=== PATIENT | female | born 1970 | race Caucasian/White ===

== ENCOUNTER 2020-09-08 01:55 | Outpatient (CLI) | payer BC, SELFPAY ==
[2020-09-08 20:00] LABS: SARS-CoV-2 RNA PCR Negative
== END 2020-09-08 01:56 | disposition home or self-care (01) ==
LOC: ANHCOVIDDT 01:55
PROVIDERS: PCP Internal Medicine; Visit Provider Obstetrics & Gynecology
DX: Z01.818 Encounter for other preprocedural examination (principal); Z20.828 Contact with and (suspected) exposure to other viral communicable diseases
CPT/HCPCS: 87635; C9803; U0003

== ENCOUNTER 2020-09-08 09:12 | Outpatient (CLI) | payer BC, SELFPAY ==
--- NOTE | 2020-09-08 09:15 | ECG_ITS ---
Measurements Intervals [place] Rate: 80 P: 54 NM: 135 QRS: 44 QRSD: 96 T: 14 QT: 366 QTc: 422 Interpretive Statements SINUS RHYTHM MINIMAL Q WAVES- HIGH LATERAL LEADS BORDERLINE ECG Electronically Signed On 09-08-2020 9:31:56 GUARD SUPERVISOR by Javed Herrera D.O.
[2020-09-08 10:23] LABS: Anion Gap 4 mmol/L (8-16); Blood Urea Nitrogen 10 mg/dL (7-17); Calcium 8.6 mg/dL (8.4-10.2); Carbon Dioxide 31 mmol/L (22-30); Chloride 103 mmol/L (98-107); Estimated Glomerular Filt Rate > 60; Glucose 89 mg/dL (65-105); Potassium 4.3 mmol/L (3.4-5.0); Sodium 138 mmol/L (137-145)
== END 2020-09-08 09:13 | disposition home or self-care (01) ==
LOC: ANHSURGERY 09:15
PROVIDERS: Anesthesiology; PCP Internal Medicine; Visit Provider Obstetrics & Gynecology
DX: Z01.818 Encounter for other preprocedural examination (principal); I10 Essential (primary) hypertension; R94.31 Abnormal electrocardiogram [ECG] [EKG]
CPT/HCPCS: 36415; 80048; 93005

== ENCOUNTER 2020-09-11 01:41 | Day surgery (SDC) | payer BC, SELFPAY ==
[2020-09-06 11:01] VITALS: BMI 38.5
--- NOTE | 2020-09-08 14:22 | WPDANESEPPF ---
Anes - Initial Pre Proc Eval Procedure: Operation Date: 09/11/20 12:00 Proposed Procedures p Hysteroscopy, Dilation and Curettage, Possible Myosure, Cervical Biopsy - Nixon Weinberg MD Date/Time: 09/08/20 14:22 Surgeon: Nixon Weinberg MD Pre Op Diagnosis: abnormal uterine bleeding Patient Data Age: 49 Gender: F Height: 1.63 m Weight: 101.8 kg Allergies Allergy/AdvReac Type Severity Reaction Status Date / Time No Known Allergies Allergy Unknown Verified 09/11/20 10:05 Home Medications Medication Instructions Recorded Confirmed Type calcium carbonate 500 mg calcium 500 mg PO BID 09/10/19 09/11/20 History (1,250 mg) tablet cetirizine 10 mg tablet 10 mg PO DAILY 09/10/19 09/11/20 History icosapent ethyl 1 gram capsule 2 gm PO BID 09/10/19 09/11/20 History infliximab 100 mg intravenous See Rx Instructions .ROUTE .COMPLEX 09/10/19 09/11/20 History solution magnesium 200 mg tablet 200 mg PO DAILY 09/10/19 09/11/20 History menthol 0.44 %-zinc oxide 20.6 % 1 applic TOPICAL 4-6XD PRN 09/10/19 09/06/20 History topical ointment mesalamine 1.2 gram tablet,delayed 1.2 gm PO DAILY 09/10/19 09/11/20 History release mometasone 0.1 % topical cream 1 applic TOPICAL PRN PRN 09/10/19 09/06/20 History vit with calcium-iron 1 tablet PO QAM 09/10/19 09/11/20 History fum-folic acid 27 mg-1 mg tablet losartan 50 mg-hydrochlorothiazide 0.5 tablet PO DAILY 01/20/20 09/11/20 History 12.5 mg tablet mecobalamin (vitamin B12) 5,000 5,000 mcg PO QAM 01/20/20 09/11/20 History mcg disintegrating tablet potassium 99 mg tablet 550 mg PO QAM 01/20/20 09/11/20 History fluticasone propionate 50 2 spray NASAL DAILY #3 each 03/06/20 09/11/20 Rx mcg/actuation nasal spray,suspension atorvastatin 80 mg tablet 80 mg PO DAILY #90 tablet 05/11/20 09/11/20 Rx cholecalciferol (vitamin D3) 25 mcg PO DAILY 09/06/20 09/11/20 History valacyclovir 1,000 mg PO QAM 09/06/20 09/11/20 History progesterone micronized 200 mg PO HS 09/11/20 09/11/20 History [Prometrium] Patient hx anesthesia problems: none Family hx anesthesia problems: none PMFSH Past Medical History Medical History Abnormal Pap smear of cervix Anxiety Benign essential hypertension BMI 37.0-37.9, adult BMI 38.0-38.9,adult Crohn's disease Encounter for routine adult health examination without abnormal findings Fatty liver Follow up Hyperlipidemia IBS (irritable bowel syndrome) Nicotine abuse On intermediate frame tender drug therapy COURTNEY on CPAP Personal history of nicotine dependence Screening for diabetes mellitus Shingles Vitamin D deficiency Family History Family History Mother Diabetes mellitus Hypertension Other Family history of malignant neoplasm of breast Family history of malignant neoplasm of cervix Family history of malignant neoplasm of ovary Social History Social History Years smoked: 30 Smoking status: Current every day smoker Tobacco type: cigarettes Second hand tobacco smoke exposure: No Alcohol intake: current Drinks per week: 3 Living arrangements: with family Spiritual care concerns: No Anes - Eval Final PreProcedure Day of Procedure 09/08/20 14:22 Patient weight: obese Heart: regular rate and rhythm Lungs: clear to auscultation and normal air movement Airway: Mallampati scale class III Neurological: alert and oriented Last oral intake: >/= 8 hours ASA classification: III Emergent: no Anesthetic plan: proceed Anesthesia type and monitoring: general GIVS and standard monitoring Informed Consent: The patient's anesthetic plan and its attendant risks and benefits were discussed with the patient/family/POA. Questions were solicited and answers provided to the satisfaction of the patient/family/POA.
[2020-09-11 10:15] VITALS: BP 122/75; PULSE 75; RESP 16; TEMP 36.4; O2SAT 100
--- NOTE | 2020-09-11 10:19 | PM.IMHP ---
H&P: HPI History of Present Illness Date/Time: 09/11/20 10:19 Chief Complaint: Heavy bleeding and abnormal pap. Narrative: Anabel Beltran is a 49 year old perimenopausal female with acute menorrhagia starting over a month ago. Prior to this she had anovulatory cycles. She also had an LGSIL pap and was scheduled for colposcopy but unable to do due to bleeding and pain. She was subsequently treated for endometritis which improved the bleeding for a few days and then continued to have heavy bleeding. Attempted endometrial biopsy in office but she could not tolerate it. Due to the persistent menometrorrhagia not relieved with antibiotics. She does not tolerate NSAIDs due to GI history. She was recommended for D and C and hysteroscopy and will do the colposcopy at the same time. Review of Systems Review of Systems: All systems reviewed & are unremarkable except as noted in HPI and below Cardiovascular: Cardiovascular: Reports no additional cardiovascular complaints, Denies chest pain and Denies dyspnea Respiratory: Respiratory: Reports no additional respiratory complaints and Denies dyspnea Gastrointestinal: Gastrointestinal: Reports abdominal pain, Denies change in bowel habits, Denies diarrhea, Denies nausea and Denies vomiting Genitourinary: Genitourinary: Reports pelvic pain Integumentary/Breasts: Skin/Breast: Reports system reviewed and no additional complaints, except as docu Neurologic: Reports system reviewed and no additional complaints, except as documented PMFSH Past Medical History Medical History Abnormal Pap smear of cervix Anxiety Benign essential hypertension BMI 37.0-37.9, adult BMI 38.0-38.9,adult Crohn's disease Encounter for routine adult health examination without abnormal findings Fatty liver Follow up Hyperlipidemia IBS (irritable bowel syndrome) Nicotine abuse On residential drug therapy COURTNEY on CPAP Personal history of nicotine dependence Screening for diabetes mellitus Shingles Vitamin D deficiency Family History Family History Mother Diabetes mellitus Hypertension Other Family history of malignant neoplasm of breast Family history of malignant neoplasm of cervix Family history of malignant neoplasm of ovary Social History Social History Years smoked: 30 Smoking status: Current every day smoker Tobacco type: cigarettes Second hand tobacco smoke exposure: No Alcohol intake: current Drinks per week: 3 Living arrangements: with family Spiritual care concerns: No Meds Home Medications and Allergies Home Medications Medication Instructions Recorded Confirmed Type calcium carbonate 500 mg calcium 500 mg PO BID 09/10/19 09/11/20 History (1,250 mg) tablet cetirizine 10 mg tablet 10 mg PO DAILY 09/10/19 09/11/20 History icosapent ethyl 1 gram capsule 2 gm PO BID 09/10/19 09/11/20 History infliximab 100 mg intravenous See Rx Instructions .ROUTE .COMPLEX 09/10/19 09/11/20 History solution magnesium 200 mg tablet 200 mg PO DAILY 09/10/19 09/11/20 History menthol 0.44 %-zinc oxide 20.6 % 1 applic TOPICAL 4-6XD PRN 09/10/19 09/06/20 History topical ointment mesalamine 1.2 gram tablet,delayed 1.2 gm PO DAILY 09/10/19 09/11/20 History release mometasone 0.1 % topical cream 1 applic TOPICAL PRN PRN 09/10/19 09/06/20 History vit with calcium-iron 1 tablet PO QAM 09/10/19 09/11/20 History fum-folic acid 27 mg-1 mg tablet losartan 50 mg-hydrochlorothiazide 0.5 tablet PO DAILY 01/20/20 09/11/20 History 12.5 mg tablet mecobalamin (vitamin B12) 5,000 5,000 mcg PO QAM 01/20/20 09/11/20 History mcg disintegrating tablet potassium 99 mg tablet 550 mg PO QAM 01/20/20 09/11/20 History fluticasone propionate 50 2 spray NASAL DAILY #3 each 03/06/20 09/11/20 Rx mcg/actuation nasal spray,susp
[2020-09-11] MEDS: LACTATED RINGERS 1,000 ML 30 ML IV CONT (10:31)
--- NOTE | 2020-09-11 11:46 | WPDHPUPDATE1 ---
History and Physical Update Update Date/Time: 09/11/20 11:46 History and Physical has been reviewed, including an updated exam of the patient. There are NO changes in the patient's condition. Risks, benefits, and alternatives have been discussed and questions answered. Patient agrees to proceed with procedure.
[2020-09-11] MEDS: ceFAZolin 2 GM/D5W 50 ML 2 GM/50 ML BAG IVPB (11:56)
[2020-09-11 12:37] VITALS: BP 105/69; PULSE 81; RESP 16
--- NOTE | 2020-09-11 12:39 | PM.PROC ---
Procedure Note - Detailed Date of procedure: 09/11/20 Pre-op diagnosis: abnormal uterine bleeding 1. Abnormal uterine bleeding 2. LGSIL Post-op diagnosis: same Procedure performed: 1. Diagnostic hysteroscopy and dilation and currettage 2. Colposcopy with cervical biopsies and endocervical currettage. Description of procedure: After informed consent was obtained patientWas taken to the operating room and adequate IV sedation was administered. She was placed in high lithotomy position and prepped and draped in sterile fashion. Attention was turned to the vagina. Speculum was inserted. Single-tooth tenaculum placed on the anterior lip of the cervix. 10 cc of 1% lidocaine plain was injected at the cervical vaginal interface that 2,5,8 and 10:00 a.m.. Lugol solution was placed on the cervix. The colposcopy was performed. There was noted to be hypopigmentation at 6,12, and 2 o clock position of cervix. Lesions visualized completely. Transformation zone seen completely. These areas were biopsied. The cervix was then dilated to an 8 Rice dilator. Initially there is some scarring at the lower uterine segment. Os finder was used. The uterus was initially sounded to 4 cm. The hysteroscope was inserted and the uterine cavity was visualized. The uterine cavity was overall normal it was noted to have slightly more lining on the posterior cavity. No lesions were seen. The hysteroscope was removed and resounded to 6 cm. A curettage was performed and a moderate amount of tissue was obtained. Cell solution was placed at the cervical biopsy sites and hemostasis was noted. The speculum was removed the patient tolerated procedure well total insufflation filled with 100 cc total recovered with 750 cc. Sponge count was correct patient tolerated procedure and was taken to recovery in stable condition. Surgeon: Nixon Weinberg MD
[2020-09-11] MEDS: fentaNYL CITRATE INJ (*CRX) 100 MCG/2 ML VIAL 25 MCG IV PUSH (12:49)
[2020-09-11 13:05] VITALS: BP 117/80; PULSE 69; RESP 16
[2020-09-11 13:35] VITALS: BP 143/82; PULSE 83; RESP 16
== END 2020-09-11 13:55 | disposition home or self-care (01) ==
PROVIDERS: PCP Internal Medicine; Visit Provider Obstetrics & Gynecology
PROC: 0U5B8ZZ Destruction of Endometrium, Via Natural or Artificial Opening Endoscopic (ICD-10-PCS; CPT 58563; principal; 2020-09-11 12:00)
DX: N92.1 Excessive and frequent menstruation with irregular cycle (principal); R87.612 Low grade squamous intraepithelial lesion on cytologic smear of cervix (LGSIL); N72 Inflammatory disease of cervix uteri; I10 Essential (primary) hypertension; G47.33 Obstructive sleep apnea (adult) (pediatric); K50.90 Crohn's disease, unspecified, without complications; K76.0 Fatty (change of) liver, not elsewhere classified; F41.8 Other specified anxiety disorders; E78.5 Hyperlipidemia, unspecified; E55.9 Vitamin D deficiency, unspecified; F17.210 Nicotine dependence, cigarettes, uncomplicated; E66.9 Obesity, unspecified; Z68.39 Body mass index [BMI] 39.0-39.9, adult
CPT/HCPCS: 58558; 57454; 88305; A9270; J0690; J2250; J2704; J3010; J7030; J7120

== ENCOUNTER 2021-12-20 16:46 | Outpatient (CLI) | payer BC, SELFPAY ==
--- NOTE | ~2021-12-20 | XR_ITS ---
XR chest 2V DATE: 12/20/2021 17:31 INDICATION: Nonspecific reaction to tuberculin skin test TECHNIQUE: PA and lateral views COMPARISON: 12/23/2004 portable AP chest FINDINGS: Normal heart size. No hilar or mediastinal enlargement. No pulmonary infiltrate or consolid ation, pleural effusion or pulmonary vascular congestion or pneumothorax. Included skeletal structure s are unremarkable. IMPRESSION: No active cardiopulmonary disease Reviewed, dictated and finalized at location A.
== END 2021-12-20 16:47 | disposition home or self-care (01) ==
PROVIDERS: PCP Internal Medicine; Visit Provider Internal Medicine
DX: R76.11 Nonspecific reaction to tuberculin skin test without active tuberculosis (principal)
CPT/HCPCS: 71046

== ENCOUNTER 2022-10-31 15:07 | Outpatient (CLI) | payer BC, SELFPAY ==
--- NOTE | ~2022-10-31 | MM_ITS ---
EXAMINATION: MM screening harsha BI w cleopatra HISTORY: Screening mammogram TECHNIQUE: Craniocaudal and mediolateral oblique 3-D tomosynthesis images were obtained and synthetic 2-D images were generated. CAD analysis was submitted and interpreted. COMPARISON: 10/07/2019 bilateral screening mammogram BREAST PARENCHYMAL COMPOSITION: There are scattered areas of fibroglandular density. FINDINGS: There is no evidence of suspicious mass, calcification, or architectural distortion to sugg est malignancy in either breast. There has been no suspicious interval change. IMPRESSION: 1. No mammographic evidence of malignancy. 2. Recommend routine screening mammography in one year. BI-RADS Category 1: Negative Reviewed, dictated and finalized at location A. DLE REPAIRER
== END 2022-10-31 15:08 | disposition home or self-care (01) ==
LOC: ANHIMG 15:12
PROVIDERS: PCP Internal Medicine; Visit Provider Obstetrics & Gynecology
DX: Z12.31 Encounter for screening mammogram for malignant neoplasm of breast (principal)
CPT/HCPCS: 77063; 77067

== ENCOUNTER 2023-12-12 07:44 | Outpatient (CLI) | payer BC, SELFPAY ==
--- NOTE | ~2023-12-12 | MM_ITS ---
EXAMINATION: MM screening harsha BI w cleopatra HISTORY: Screening TECHNIQUE: Craniocaudal and mediolateral oblique 3-D tomosynthesis images were obtained and synthetic 2-D images were generated. CAD analysis was submitted and interpreted. COMPARISON: Comparison to multiple prior studies sequentially, with oldest reviewed study dated 06/23. BREAST PARENCHYMAL COMPOSITION: Not dense: There are scattered areas of fibroglandular density. FINDINGS: The left breast is stable without evidence for malignancy. There is a developing nodular as ymmetry in the mid lateral aspect of the right breast, middle third on CC view. IMPRESSION: 1. Developing right breast asymmetry. 2. Additional mammographic views and possible breast ultrasound are recommended. BI-RADS Category 0: Incomplete: Needs additional imaging evaluation. Reviewed, dictated and finalized at location A. IMPRESSION: 1. Developing right breast asymmetry. 2. Additional mammographic views and possible breast ultrasound are recommended . BI-RADS Category 0: Incomplete: Needs additional imaging evaluation.
== END 2023-12-12 07:45 | disposition home or self-care (01) ==
LOC: ANHIMG 07:49
PROVIDERS: PCP Internal Medicine; Visit Provider Internal Medicine
DX: Z12.31 Encounter for screening mammogram for malignant neoplasm of breast (principal); R92.8 Other abnormal and inconclusive findings on diagnostic imaging of breast
CPT/HCPCS: 77063; 77067

== ENCOUNTER 2024-01-19 12:54 | Outpatient (CLI) | payer BC, SELFPAY ==
--- NOTE | ~2024-01-19 | MMUS_ITS ---
EXAMINATION: MM diagnostic harsha RT w cleopatra, US breast RT limited HISTORY: Developing right breast mammographic asymmetry reported on 12/12/2023 screening mammogram exa mination TECHNIQUE: Additional 3-D tomosynthesis images of the right breast were performed and synthetic 2-D i mages were generated. CAD analysis was submitted and interpreted. High resolution 6-12:00 right breas t ultrasound was performed. COMPARISON: 12/12/2023, 10/31/2022, 10/07/2019 bilateral screening mammogram examinations FINDINGS: MAMMOGRAPHIC FINDINGS: No suspicious mass or architectural distortion, malignant calcification, skin thickening or retractio n of the right breast is detected. No significant new or developing density is noted compared to 10/07/2019. ULTRASOUND: 9:00 6 cm from nipple: Well-circumscribed hypoechoic 4.7 x 2.2 x 6.3 mm lesion without internal vasc ularity or posterior shadowing, probably benign in appearance. 10:00 3 cm from nipple: 3.4 x 3 x 5.7 mm parallel circumscribed hypoechoic lesion without posterior shadowing, probably benign No other suspicious mass lesion or shadowing is detected. IMPRESSION: 1. Probably benign findings 2. Six-month diagnostic right mammogram right breast ultrasound follow-up are recommended BI-RADS category 3, probably benign findings. Reviewed, dictated and finalized at location A. IMPRESSION: 1. Probably benign findings 2. Six-month diagnostic right mammogram right breast ultrasound follow-up are r ecommended BI-RADS category 3, probably benign findings.
== END 2024-01-19 12:55 | disposition home or self-care (01) ==
PROVIDERS: PCP Internal Medicine; Visit Provider Internal Medicine
DX: R92.8 Other abnormal and inconclusive findings on diagnostic imaging of breast (principal)
CPT/HCPCS: 76642; 77061; 77065; G0279

== ENCOUNTER 2024-08-09 07:44 | Outpatient (CLI) | payer BC, SELFPAY ==
--- NOTE | ~2024-08-09 | MMUS_ITS ---
EXAMINATION: MM diagnostic harsha RT w cleopatra, US breast RT limited HISTORY: Probable benign right breast lesions TECHNIQUE: 3-D tomosynthesis images of the right breast were performed and synthetic 2-D images were generated. CAD analysis was submitted and interpreted. High resolution limited right breast ultrasoun d was performed. COMPARISON: 01/19/2024, 12/12/2023, 10/31/2022, 10/07/2019 BREAST PARENCHYMAL COMPOSITION:Not Dense. There are scattered areas of fibroglandular density. FINDINGS: MAMMOGRAPHIC FINDINGS: Parenchymal pattern of the right breast is unchanged. No suspicious mass lesion or distortion. No paul picious microcalcification. ULTRASOUND: At the 10:00 position right breast, 5 cm from the nipple, there is a 2 mm hypoechoic circumscribed ma ss, decreased in size from prior exam. No other sonographic abnormality seen. No abnormality seen in the 9:00 position right breast. IMPRESSION: No evidence for malignancy. 2 mm hypoechoic sonographic lesion at the 10:00 position right breast, decreased in size from prior e xam. No sonographic abnormality seen on the current exam at the 9:00 position right breast. BI-RADS Category 2: Benign finding(s). Reviewed, dictated and finalized at location M. ITY MEASUREMENT SPECIALIST IMPRESSION: No evidence for malignancy. 2 mm hypoechoic sonographic lesion at the 10:00 position right breast, decrease d in size from prior exam. No sonographic abnormality seen on the current exam at the 9:00 position right breast. BI-RADS Category 2: Benign finding(s).
--- NOTE | ~2024-08-09 | DEXA_ITS ---
Bone Density Report Name: LOVE HERNADEZ Age: 53 Sex: Female Ethnicity: White Date of : 1970 Indication: postmenopausal; screening for osteoporosis; inflammatory bowel disease; Referring Provider: RAE WONG Study: Bone densitometry was performed. Exam Date: August 09, 2024 Accession number: [id number] Bone Density: Region BMD T-score Z-score Classification AP Spine(L1-L4) 1.063 0.1 1.0 Normal Femoral Neck (Left) 0.827 -0.2 0.6 Normal Total Hip (Left) 0.947 0.0 0.6 Normal Femoral Neck (Right) 0.871 0.2 1.0 Normal Total Hip (Right) 0.979 0.3 0.8 Normal Total Hip Mean 0.963 0.2 0.7 Normal World Health Organization criteria for BMD impression classify patients as: Normal (T-score at or above -1.0), Osteopenia (T-score between -1.0 and -2.5), or Osteoporosis (T-score at or below -2.5). 10-year Fracture Risk: FRAX not reported because: All T-scores for Spine Total, Hip Total, Femoral Neck at or above -1.0 Clinical Information Provided by Patient: Has used the following medications: Vitamin D, Calcium Has the following medical conditions: Inflammatory bowel diseases Patient maximum height was 64.5 No regular weight bearing exercise Drinks caffeinated beverages Onset of menses at age 14 Number of children 0 Impression: The patient has normal bone mass. Discussion: BONE DENSITY IS ABOVE THE MINIMUM DESIRABLE LEVEL AT ALL SKELETAL SITES TESTED. This patient?s bone mineral density is above the minimum desirable level (T-score -1.0 or better) at all sites measured. The patient should follow a healthful lifestyle (good nutrition with adequate calcium and vitamin D, and appropriate weight-bearing exercise). Follow-Up: Consider repeating this study in 5 years or sooner if there is some new clinical indication. Reported by: GRABIEL on 08/09/2024 8:15:00 AM. Reviewed, dictated and finalized at location AMilvia JANSEN
== END 2024-08-09 07:45 | disposition home or self-care (01) ==
LOC: ANHIMG 07:45
PROVIDERS: PCP Internal Medicine; Visit Provider Internal Medicine
DX: R92.8 Other abnormal and inconclusive findings on diagnostic imaging of breast (principal); M81.0 Age-related osteoporosis without current pathological fracture; Z78.0 Asymptomatic menopausal state
CPT/HCPCS: 76642; 77061; 77065; 77080; G0279

== ENCOUNTER 2024-09-09 08:19 | Outpatient (CLI) | payer BC, SELFPAY ==
[2024-09-27 20:43] VITALS: BMI 30.7
--- NOTE | 2024-09-27 20:43 | WPDHOMESLEEP ---
Sleep Study - Home Unattended Date of Study: 09/09/24 Ordering Provider: Ellis Kaur MD Interpreting Provider: Layla Meeks, DO Home Sleep Study Type: Watch PAT Height: 1.63 m Weight: 81.193 kg Body Mass Index: 30.7 Neck Circumference (inches): 15.5 Greene: 3 Reason for Sleep Study Insomnia Sleep History The patient is a 53-year-old female that had a sleep study ordered for evaluation of sleep apnea.? The patient admits to having difficulty falling asleep.? The patient does snore and has interruptions in breathing while asleep.? The patient does choke or gasp at night.? The patient denies having trouble breathing on they are back.? They denies morning headaches, dry/sore mouth or throat in the morning, nocturnal heartburn and nocturia.? The patient does have difficulty staying asleep.? The patient does not have difficulty returning to sleep if they wake up throughout the night.? The patient denies hypnotic or sedative use.? The patient denies feeling anxious about sleep.? The patient does not feel tired or sleepy during the day.? They do feel tired in the morning.? They do not have the urge to fall asleep during the day.? They do not feel drowsy while driving.? They denies sleep paralysis, cataplexy and hypnagogic/hypnopompic hallucinations.? The denies clenching or grinding there are teeth.? She denies kicking or jerking her legs excessively.? She does have a restless feeling in her legs but it is not accompanied by an urge to move the legs.? The restless feeling does not get worse with rest nor does it get better with activity.? The restless feeling is present in the evenings but it does not cause a disturbance in her sleep.? They go to bed at 9:00 p.m. on work days and at 10:00 p.m. on no days off.? It takes him 30 minutes to fall asleep.? They get 7.5 hours of sleep per night.? There sleep is much more restorative on days off.? They denied taking and is planned naps.? They denied dream enactment behavior.? She denies sleep walking. They deny consuming any caffeinated beverages throughout the day.? They consume 2 alcoholic beverages 1-2 nights per week.? They deny tobacco use.? They deny any exercise on a regular basis. COUNTS INCLUDE 234 BEDS AT THE [facility] Past Medical History Medical History BMI 31.0-31.9,adult BMI 34.0-34.9,adult Borderline abnormal TFTs Iron deficiency anemia Encounter for routine adult health examination with abnormal findings Frequent headaches Vaginal discharge Ovarian cyst Inconclusive mammogram Gallbladder attack Ear pain, right Chronic pain of right thumb Calcaneal spur of right foot Abnormal mammogram of right breast Cough Low hemoglobin and low hematocrit Abnormal thyroid function test Encounter for preventive health examination Colon cancer screening Vitamin B12 deficiency BMI 39.0-39.9,adult Abnormal Pap smear of cervix BMI 38.0-38.9,adult Nicotine abuse Screening for diabetes mellitus Personal history of nicotine dependence Anxiety Follow up Shingles Benign essential hypertension Crohn's disease BMI 37.0-37.9, adult COURTNEY on CPAP Encounter for routine adult health examination without abnormal findings On retirement drug therapy Fatty liver IBS (irritable bowel syndrome) Hyperlipidemia Vitamin D deficiency Surgical History Surgical History Status post surgical removal of malignant neoplasm of skin S/P LASIK surgery S/P cholecystectomy H/O exploratory laparotomy S/P small bowel resection S/P appendectomy History of dilatation and curettage Family History Family History Mother Diabetes mellitus Hypertension Other Family history of malignant neoplasm of breast Family history of malignant neoplasm of cervix Family history of malignant neoplasm of ovary Social History Social History Years smoked: 30 Smoking status: Former smoker Tobacco type: cigarettes Second hand tobacco smoke exposure: Yes Smoking end date: 07/22/22 Alcohol intake: current Drinks per week: 3 Lack of Transportation: No Lack of Food: Never True Current Housing: I Have Housing Concerned About Future Housing: No Difficulty Paying Gas/Electric Bills: No Difficulty Paying for Meds: No Currently Unemployed: No Education: High School Diploma/GED Difficulty w/ Childcare or Family Care: No Living arrangements: with family Occupation/Education: occupation Gender identity (if verbalized by the patient): Female Spiritual care concerns: No Medications Home Medications ?Medication ?Instructions ?Recorded ?Confirmed ?Type calcium carbonate 500 mg PO BID 09/10/19 09/17/24 History cetirizine 10 mg tablet 10 mg PO DAILY 09/10/19 09/17/24 History infliximab 100 mg intravenous See Rx Instructions .Route .COMPLEX 09/10/19 09/17/24 History solution (Remicade) mecobalamin (vitamin B12) 5,000 5,000 mcg PO QAM 01/20/20 09/17/24 History mcg disintegrating tablet potassium 99 mg tablet 550 mg PO QAM 01/20/20 09/17/24 History sulfasalazine 500 mg tablet 0.5 g PO DAILY 08/09/21 09/17/24 History Vascepa 1 gram capsule (icosapent See Rx Instructions .Route 07/22/22 09/17/24 Rx ethyl) .COMPLEX #360 caps triamcinolone acetonide 0.5 % 1 applic topical BID PRN external 08/27/22 09/17/24 Rx topical ointment vaginal irritation #15 grams cholecalciferol (vitamin D3) 100 100 mcg PO DAILY 10/28/22 09/17/24 History mcg (4,000 unit) tablet biotin 1 mg capsule 1 mg PO DAILY 03/04/23 09/17/24 History trazodone 50 mg tablet See Rx Instructions .Route 07/21/23 09/17/24 Rx .COMPLEX #270 tabs progesterone micronized 200 mg 200 mg PO QHS 90 days #90 caps 09/29/23 09/17/24 Rx capsule (Prometrium) ferrous gluconate 324 mg (38 mg 324 mg PO BID #180 tabs 11/07/23 09/17/24 Rx iron) tablet valacyclovir 1 gram tablet See Rx Instructions .Route 12/15/23 09/17/24 Rx .COMPLEX #180 tabs fluticasone propionate 50 1 spray intranasal BID PRN allergy 03/19/24 09/17/24 Rx mcg/actuation nasal symptoms #48 grams spray,suspension (Flonase Allergy Relief) atorvastatin 80 mg tablet See Rx Instructions .Route 04/06/24 09/17/24 Rx .COMPLEX #90 tabs bupropion HCl 150 mg 24 hr tablet, See Rx Instructions .Route 07/04/24 09/17/24 Rx extended release .COMPLEX #90 tabs losartan 25 mg tablet 25 mg PO DAILY #90 tabs 07/04/24 09/17/24 Rx magnesium oxide BYMOUTH 07/29/24 09/17/24 History wheat dextrin 3 gram/4 gram oral 1 packet PO DAILY 07/29/24 09/17/24 History powder (Benefiber Sugar Free (dextrin)) zolpidem 10 mg tablet (Ambien) 10 mg PO QHS PRN sleep eval #1 07/29/24 09/17/24 Rx tablet tirzepatide (weight loss) 10 10 mg (0.5 mL) subcut WEEKLY #9 mL 08/09/24 09/17/24 Rx mg/0.5 mL subcutaneous pen injector (Zepbound) Sleep Procedure The sleep study was completed using [employer] a technically adequate device with seven channels: peripheral arterial tone, actigraphy, body position, snore, respiratory movement, pulse oximetry, sleep staging, and heart rate. Prior to using the device, the patient received verbal and written instructions for its application and was provided with the help desk phone number for additional telephonic instruction with 24-hour availability of qualified personnel to answer questions. The study was scored using AASM guidelines. Sleep Architecture The total recording time is 8 hrs, 6 min. The total sleep time is 7 hrs, 30 min. Sleep latency is 5 minutes. REM latency is 57 minutes. The patient had 5 episodes of waking. Sleep architecture shows 27.4% deep sleep, 36.1% light sleep, and (as % Total Sleep Time) showed NREM (Light 36.1%; Deep 27.4%), and a 36.4% stage REM. The patient spent 73.3% of total sleep time in the supine position. Sleep efficiency was 92.59. Respiratory Analysis The overall AHI (pAHI 3%:) is 5.3. The central AHI is 0.3. The AHI was 0.9 in NREM and 12.8 in REM sleep. The AHI was 6.7 in Supine and 1.1 in Non-supine sleep. Percent of Wilfredo Jordan respirations is 0.0. Oximetry Data The oxygen desaturation index (BRYON 4%:) is 1.1. The mean saturation is 94%, and the lowest saturation is 85%. Time spent with saturation < 88% is 0.2 minutes. Snoring Profile Snoring average intensity is 42 dB. The patient snored above 45 decibels for 70.7 minutes, 15.7% of sleep time. Cardiac Profile The average pulse rate is 81 beats per minutes. The lowest pulse rate is 66 bpm. The highest pulse rate reported is 100 bpm. Atrial fibrillation was not detected. Premature beats occur <0.1 per minute. Assessment and Plan Assessment and Plan (1) COURTNEY (obstructive sleep apnea): Code(s): G47.33 - Obstructive sleep apnea (adult) (pediatric) Status: Acute Assessment and Plan: The patient had an overall AHI of 5.3 with desaturation down to 85%. This is consistent with mild sleep apnea. Due to the patient's insomnia, she qualifies for treatment. I recommend that the patient be prescribed Resmed AutoPAP 5-15 cm H2O, CPAP mask/filters/tubing and heated humidity. This should be used with all episodes of sleep.? Compliance should be reviewed within 31-90 days of starting therapy for usage greater than 4 hours per night greater than 70% of the nights. The patient should be asked about symptoms such as?excessive daytime sleepiness, quality of sleep, decreased nocturia, increased?mental functioning such as memory, mood, and concentration. Data The data obtained during this sleep study is adequate for interpretation. Certification This sleep study has been reviewed by a board certified sleep medicine physician.
== END 2024-09-10 12:00 | disposition home or self-care (01) ==
LOC: ANHCSM 08:20
PROVIDERS: PCP Internal Medicine; Visit Provider Internal Medicine
DX: G47.33 Obstructive sleep apnea (adult) (pediatric) (principal); Z99.89 Dependence on other enabling machines and devices
CPT/HCPCS: 95800

== ENCOUNTER 2024-11-17 01:29 | Day surgery (SDC) | payer OTHER, SELFPAY ==
[2024-11-08 13:30] VITALS: BMI 30.2
--- NOTE | 2024-11-08 13:36 | PC.NURSE ---
Addendum entered by Yomaira Morales RN 11/08/24 13:45: PT INSTRUCTED TO TAKE BUPROPION AM OF SURGERY Original Note: Report to the Outpatient Waiting Room, entrance under the green pavilion located off [facility], at time _0600_ on date _11/17/24_. Planned Procedure Time: _0730_.? Time changes happen often and if your time is changed the preop area will call you the afternoon before. - You and your visitor will be asked to self-screen and do not enter if you have any COVID symptoms. Please call surgeon if you need to reschedule. - A mask is optional within the hospital at this time. Patients may have clear liquids (water, carbonated beverages, clear teas, apple juice) until 3 hours prior to surgery with a maximum of 20 ounces. - No food from midnight until time of surgery and no smoking, or chewing tobacco (or any form of nicotine). No chewing gum, candy or mints. - Infants may have breast milk until 4 hours before surgery, infant formula 6 hours prior to surgery. - Children will be allowed to drink immediately following surgery.? If applicable, please bring a bottle or sippy cup to assist with drinking. Juice, water, soda, and popsicles are readily available.? For infants on formula, please bring formula the day of surgery.? Pacifiers are allowed. Take only the following medications with a SIP of water on the morning of surgery: DO NOT STOP ANY OF YOUR OTHER PRESCRIPTION MEDICATIONS PRIOR TO SURGERY EXCEPT THE FOLLOWING Hold all vitamins and supplements for 3 days per anesthesiologist. Medications to discontinue per physician ZEPBOUND Date to take last dose____11/02/24 Please no make-up, nail malian, hairspray, perfume, deodorant, or body powder the day of surgery.? No jewelry (including any body piercings) or valuables the day of surgery, leave them at home.? Please take a shower or bath the night before, or the morning of, surgery with an antibacterial soap.? Wear comfortable, loose fitting clothing.? Children are encouraged to wear pajamas. - Jewelry must be removed prior to entering the operating room.? Rings and piercings that are not removed may be cut off. - The hospital will not accept responsibility for valuables.? - Please leave all valuables, including medications, at home the day of surgery. If you are going home after surgery, a licensed security patrol driver must drive you home.? - NO public transportation without another adult if you receive anesthesia. - We recommend that an adult stay with you for 24 hours following discharge. - We also recommend that you do not drive, make important decision, drink alcoholic beverages, or take any drugs that were not prescribed by your health care provider for at least 24 hours after your discharge time. For Pediatric surgeries, we recommend two adults accompany the child home. Follow any additional instructions given to you from your surgeon. Telephone instructions given to _STATEN___and asked if any additional questions and then verbalized understanding. Patient advised to call surgeon office or pre surgery nurse liaison [phone] if any additional questions.
--- OUTSIDE RECORDS SUMMARY | 2024-11-17 01:33 | XMS_ITS | Encounter Summary ---
Author Organization [facility] Address [address] [facility] [address] [place] [address] Phone Care Team Providers Care Ent Nurse Name Role Phone Ellis Kaur MD Primary Care Provider Encounter Details Date Type Department Care Team (Late st Contact Info) Description 11/08/2024 Results Follow-Up [facility] [address] [facility] [address] [place] [address] Michael Arias MD [address] [place] [address] Social History Tobacco Use Types Packs/Day Years Used Date Smoking Tobacco: Former Cigarettes Smokeless Tobacco: Never Comments:3/day Alcohol Use Standard Drinks/Week Comments Yes 0 (1 standard drink = 0.6 oz pur e alcohol) 3-4/week AUDIT-C Answer Date Recorded Q1: How often do you have a drink containing alc ohol? 2-3 times a week 07/02/2024 Q2: How many drinks containi ng alcohol do you have on a typical day when you are drinking? 1 or 2 07/02/2024 Frequency of Binge Drinking Not on file 06/22 Personal Safety Answer Date Recorded Have you ever been in or are you currently in a harmful physical or emotional relationship or is someone making you feel afraid or unsafe? 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
--- OUTSIDE RECORDS SUMMARY | 2024-11-17 01:33 | XMS_ITS | Clinical Summary ---
Author Organization [facility] Address [address] [place] [address] Care Team Providers Care Environmental Educator Name Role Phone Ellis Kaur MD Primary Care Provider [phone] Allergies No known active allergies Medications calcium carbonate/vitami n D3 (CALCIUM 500 + D ORAL) daily Unsure of doses Active losartan-hydroCH LOROthiazide (HYZAAR) 50-12.5 mg per tablet 0.5 tablets daily 05/23/20 17 Active cyanocobalamin, vitamin B-12, 1,000 mcg tablet extended release 5 tablets daily 11/27/19 18 Active cetirizine (ZyrTEC) 10 mg tablet daily Active VASCEPA 1 gram capsule TK 2 CS PO BID 5 07/12/20 19 Active wheat dextrin 3 gram/3.8 gram powder Take by mouth every day...1 tsp Active ECHINACEA ORAL qd 04/22/20 19 Active atorvastatin (LIPITOR) 80 mg tablet daily 07/20/20 20 Active potassium gluconate 550 mg (90 mg) tablet qd Activ e valACYclovir (VALTREX) 1 gram tablet prn 08/07/20 20 Active buPROPion XL (WELLBUTRIN XL) 150 mg 24 hr tablet Take 1 tablet (150 mg total) by mouth every morning Active PrePlus 27 mg iron- 1 mg tablet TAKE 1 TABLET DAILY 90 tablet 3 05/21/20 21 Active Additional Information Patient not taking.Reported on 01/08/2024 cholecalciferol (Vitamin D3) 5,000 unit tablet daily Active traZODone (DESYREL) 50 mg tablet nightly 03/22/20 22 Active sulfaSALAzine (AZULFIDINE) 500 mg tabletIndication s:Arthralgia, unspecified joint,Crohn's disease of small and large intestines with complication (HCC) Take 2 tablets (1,000 mg total) by mouth 2 (two) times a day 360 tablet 3 08/08/20 23 Active hepatitis B 20 mcg/mL vaccineIndicatio ns:Hepatitis B Prevention Please administer at 0,1 and 6 months 1 mL 2 12/04/19 24 Active tirzepatide (ZEPBOUND SUBQ) Inject under the skin Active risankizumab-rza a (Skyrizi) 360 mg/2.4 mL (150 mg/mL) wearable injectorIndicati ons:Crohn's Disease Inject 360 mg under the skin every 8 (eight) weeks Pt due 11/04/24 2.4 mL 1 10/27/19 25 Active losartan (COZAAR) 25 mg tablet Take 1 tablet (25 mg total) by mouth daily 04/02/20 24 Active risankizumab-rza a (Skyrizi) 360 mg/2.4 mL (150 mg/mL) wearable injectorIndicati ons:Crohn's Disease Inject 360 mg under the skin every 8 (eight) weeks 2.4 mL 1 07/26/20 24 025 Discontin ued(Reord er) Active Problems Problem Noted Date Diagnosed Date Encounter for routine cancer follow-up 1 Crohn's disease with complication 04/30/2021 BMI 39.0-39.9,adult 01/01/2018 Requires hepatitis B vaccination 01/01/2018 Cholelithiasis 11/26/2017 Right upper quadrant abdominal pain 07/03/2017 BMI 40.0-44.9, adult 12/26/2016 Long-term use of immunosuppressant medication Abnormal liver function tests 07/05/2013 Anemia 04/26/2013 Hyperlipidemia 04/26/2013 Low grade squamous intraepit helial lesion (LGSIL) on cervicovaginal cytologic smear 04/26/2013 Body mass index (BMI) 0-4th percentile for age in pediatric patient 02/18/2013 Steatosis of liver 02/18/2013 Current smoker 01/31/2011 Crohn's disease of small and large intestines with complication 01/19/2011 Overview (09/12/2024): Started Ronny 09/09 Encounter for preventive health examination 09/2008 Encounters Date Type Department Care Team Description 11/08/2024 Results Follow-Up [facility] [address] [place] [address] Medical Office Building [address], [address] [place] [address] Michael Arias MD 11/04/2024 4:00 PM AUTOMATED ACCESS SYSTEMS TECHNICIAN Office Visit [facility] [address] [place] [address] [address] [place] [address] [place] [address] Michael Arias MD Crohn's disease of small and large intestines with complication (HCC) (Primary Dx); High risk medications (not anticoagulants) long-term use; Long-term use of immunosuppressant medication; Arthralgia, unspecified joint 11/04/2024 3:30 PM AUTOMATED ACCESS SYSTEMS TECHNICIAN Lab [facility] Metabolism and Lipid [address] [facility] 5th [place] [address] [place] [address] Crohn's disease of small and large intestines with complication (HCC) [K50.819] (Primary Dx) 11/04/2024 1:30 PM AUTOMATED ACCESS SYSTEMS TECHNICIAN Infusion [facility] [facility] 5th [place] [address] [place] [address] Crohn's disease of small and large intestines with complication (HCC) (Primary Dx) 10/27/2024 Orders Only [facility] [address] [place] [address] Medical Office Building [address] [place] [address] Michael Arias MD 10/07/2024 10:30 AM AUTOMATED ACCESS SYSTEMS TECHNICIAN Infusion [facility] [address] [facility] 5th [place] [address] [place] [address] Crohn's disease of small and large intestines with complication (HCC) (Primary Dx) 09/09/2024 2:30 PM AUTOMATED ACCESS SYSTEMS TECHNICIAN Lab [facility] Metabolism and Lipid [address] [facility] 5th [place] [address] [place] [address] Crohn's disease of small and large intestines with complication (HCC) [K50.819] (Primary Dx) 09/09/2024 1:30 PM AUTOMATED ACCESS SYSTEMS TECHNICIAN Infusion [facility] [address] [facility] 5th [place] [address] [place] [phone] Crohn's disease of small and large intestines with complication (HCC) (Primary Dx) 08/17/2024 Telephone [facility] [address] [facility] 13th [place] [address] [place] [phone] Simi Chong RN from Last 3 Months Immunizations Immunization Administration Dates Next Due Hep A / Hep B 01/01/2018 Hep B Vaccine 07/10/2018,02/12/2018 Hep B, Dialysis 07/15/2024,02/17/2024,01/14/2024 Influenza, Quadrivalent, Bri l Culture-based MDCK, Preservative Free, Antibiotic Free, Intramuscular 08/26/2019 Influenza, Quadrivalent, Spl it, Preservative Free, Intramuscular 07/25/2020 Influenza, Trivalent, IM (MDV) 06/30/2018 Influenza, Trivalent, Preser vative Free, Intramuscular 06/03/2017,06/22/2015,09/08/2014,08/26,10/10/2011,08/09/2010 Pfizer SARS-CoV-2 Monovalent Vaccination (12+ Yrs) PURPLE 11/23/2020 Pneumococcal Conjugate PCV 13 01/11/2016 Pneumococcal Polysaccharide PPV23 10/26/2020,09/2014,08/26/2013 Surgical History Surgery Date Site/Laterality Comments [place] EXPLORATORY LAPAROTOMY CELIOTOMY W/WO BIOPSY SPX 09/22/1997 - 09/21/1998 small bowel resection, appendectomy CHOLECYSTECTOMY 11/20/2017 - 12/20/2017 REFRACTIVE SURGERY 09/22/2011 - 09/21/2012 Bilateral UPPER GASTROINTESTINAL ENDOSCOPY Medical History Medical History Date Comments Tobacco abuse counseling HTN (hypertension) Migraines History of transfusion 1997 HAAS (nonalcoholic steatohepatitis) Rectal lesion Crohn's disease (CMS/HCC) (HCC) 1997 Hypertension COURTNEY (obstructive sleep apnea) Gilbert's disease Family History Medical History Relation Name Comments Hypertension Brother 1 Hypertension - (Added by TW Conv) Hypertension Brother 2 Hypertension - (Added by TW Conv) Diabetes Father Diabetes Mellit us - (Added by TW Conv)/Diabetes Mellitus - (Added by TW Conv) Breast cancer Father's Sister 1 Breast Ca ncer - (Added by TW Conv) Breast cancer Father's Sister 2 Breast Ca ncer - (Added by TW Conv) Diabetes Mother Diabetes Mellit us - (Added by TW Conv)/Diabetes Mellitus - (Added by TW Conv) Hypertension Mother Hypertension - (Added by TW Conv)/Hypertension - (Added by TW Conv) Ovarian cancer Other 1 Carcinoma Of The Ovary - (Added by TW Conv) Uterine cancer Other 2 Uterine Cance r - (Added by TW Conv) Ovarian cancer Other 3 Carcinoma Of The Ovary - (Added by TW Conv) Uterine cancer Other 4 Uterine Cance r - (Added by TW Conv) Ulcerative colitis Sister 1 Ulcerativ e Colitis - (Added by TW Conv) Ulcerative colitis Sister 2 Ulcerativ e Colitis - (Added by TW Conv) Relation Name Status Comments Brother 1 Brother 2 Father Alive Father's Sister 1 Father's Sister 2 Mother Alive Other 1 Other 2 Other 3 Other 4 Sister 1 Sister 2 Social History Tobacco Use Types Packs/Day Years Used Date Smoking Tobacco: Former Cigarettes Smokeless Tobacco: Never Tobacco Cessation:Counseling Given: Not Answered Comments:3/day Alcohol Use Standard Drinks/Week Comments Yes [...] on file Legal Sex Female 8:48 PM AUTOMATED ACCESS SYSTEMS TECHNICIAN Gender Identity Female 02/24/2020 3:11 PM CDT Sexual Orientation Straight 02/24/2020 3: 11 PM CDT Obstetrics History Para Term AB IAB SAB Ectopic Multiple Livin g Live Births 0 0 0 0 0 0 0 0 0 0 0 Last Filed Vital Signs Vital Sign Reading Time Taken Comments Blood Pressure 105/74 11/04/2024 3:19 PM AUTOMATED ACCESS SYSTEMS TECHNICIAN Pulse 84 11/04/2024 3:19 PM AUTOMATED ACCESS SYSTEMS TECHNICIAN Temperature 36.7 C (98 F) 11/04/2024 3:19 PM AUTOMATED ACCESS SYSTEMS TECHNICIAN Respiratory Rate 14 11/04/2024 1:35 PM AUTOMATED ACCESS SYSTEMS TECHNICIAN Oxygen Saturation 99% 11/04/2024 1:48 PM AUTOMATED ACCESS SYSTEMS TECHNICIAN Inhaled Oxygen Concentration - - Weight 81.6 kg (180 lb) 11/04/2024 3:19 PM AUTOMATED ACCESS SYSTEMS TECHNICIAN Height 162.6 cm (5' 4) 11/04/2024 3:19 PM AUTOMATED ACCESS SYSTEMS TECHNICIAN Body Mass Index 30.9 11/04/2024 3:19 PM AUTOMATED ACCESS SYSTEMS TECHNICIAN Plan of Treatment Health Maintenance Due Date Last Done Comments Breast Cancer Screening-Mammogram 1970 Cervical Cancer Screening 1970 Depression Screening 1970 Hepatitis C Screening 1970 DTaP/Tdap/Td Vaccine (1 - Tdap) 12/03/1983 Regular Well Visit/Exam 18-64 1990 Zoster Vaccine (1 of 2) 2022 Covid-19 Vaccine ( - 2023-2 5 season) 2024 06/19/2022, 05/30/2021, 12/16/2020, Additional history exists Pneumococcal vaccine <65 (3 of 3 - PCV20 or PCV21) 10/26/2025 10/26/2020, 01/11/2016, 06/22/2015, Additional history exists Colon Cancer Screening-Colonoscopy 07/02/2034 07/02/2024, 03/11/2022, 12/01/2020, Additional history exists Influenza Vaccine Completed 06/17/2024, , 06/19/2022, Additional history exists Procedures Procedure Name Priority Date/Time Associated Diagnosis Comments CRP (ACUTE PHASE) Routine 11/04/2024 1:4 5 PM AUTOMATED ACCESS SYSTEMS TECHNICIAN Crohn's disease of small and large intestines with complication (HCC) COMPREHENSIVE METABOLIC PANEL Routine 11/04/2024 1:45 PM AUTOMATED ACCESS SYSTEMS TECHNICIAN Crohn's disease of small and large intestines with complication (HCC) CBC WITH AUTO DIFFERENTIAL Routine 11/04/2024 1:45 PM AUTOMATED ACCESS SYSTEMS TECHNICIAN Crohn's disease of small and large intestines with complication (HCC) COMPREHENSIVE METABOLIC PANEL Routine 09/09/2024 1:40 PM AUTOMATED ACCESS SYSTEMS TECHNICIAN Crohn's disease of small and large intestines with complication (HCC) CRP (ACUTE PHASE) Routine 09/09/2024 1:4 0 PM AUTOMATED ACCESS SYSTEMS TECHNICIAN Crohn's disease of small and large intestines with complication (HCC) CBC WITH AUTO DIFFERENTIAL Routine 09/09/2024 1:40 PM AUTOMATED ACCESS SYSTEMS TECHNICIAN Crohn's disease of small and large intestines with complication (HCC) COLONOSCOPY 07/02/2024 7:56 AM CDT from Last 3 Months or Most Recently Relevant to Health Maintenance Results * (ABNORMAL) CBC with auto differential (11/04/2024 1:45 PM AUTOMATED ACCESS SYSTEMS TECHNICIAN) White Blood Count 5.0 3.6 - 11.2 K/uL [facility] RBC 3.57(L) 3.63 - 4.92 M/uL [facility] Hemoglobin 11.0(L) 11.9 - 15.5 g/dL [facility] Hematocrit 32.4(L) 36.1 - 44.3 % [facility] MCV 90.9 80.0 - 97.6 fL [facility] MCH 30.9 26.7 - 33.7 pg [facility] MCHC 34.0 32.7 - 35.5 g/dL [facility] RBC Dist Width 13.1 12.3 - 17.0 % [facility] Platelet Count 244 140 - 440 K/uL [facility] MPV 8.6 6.8 - 10.4 fL [facility] Neutrophils % 56.7 38.7 - 74.5 % [facility] Lymphocyte % 30.7 20.0 - 54.3 % [facility] Monocytes % 10.8 4.3 - 13.5 % [facility] Eosinophils % 1.4 0.0 - 6.0 % [facility] Basophil % 0.4 0.0 - 3.0 % [facility] Absolute Neutrophil 2.9 1.8 - 6.6 K/uL [facility] Absolute Lymphocyte 1.5 0.8 - 3.3 K/uL [facility] Absolute Monocyte 0.5 0.2 - 1.2 K/uL [facility] Absolute Eosinophil 0.1 0.0 - 0.5 K/uL [facility] Absolute Basophil 0.0 0.0 - 0.2 K/uL [facility] Nucleated RBC % 0.0 0.0 - 0.4 /100 WBC [facility] Blood 11/04/2024 1:45 PM AUTOMATED ACCESS SYSTEMS TECHNICIAN 11/04/2024 3:13 PM AUTOMATED ACCESS SYSTEMS TECHNICIAN Michael Arias MD LAB BLOOD ORDERABLES Final Result Performing Organization Address [facility]/ZIP Co de Phone Number [facility] * CRP (acute phase) (11/04/2024 1:45 PM AUTOMATED ACCESS SYSTEMS TECHNICIAN) [facility] C-Reactive Protein, Acute <3.0 <5.0 mg/L [facility] Blood 11/04/2024 1:45 PM AUTOMATED ACCESS SYSTEMS TECHNICIAN 11/04/2024 3:13 PM AUTOMATED ACCESS SYSTEMS TECHNICIAN Narrative [facility] - 11/04/2024 4:04 PM AUTOMATED ACCESS SYSTEMS TECHNICIAN Draw labs for first and third treatments Michael Arias MD LAB BLOOD ORDERABLES Final Result [facility] * Comprehensive metabolic panel (11/04/2024 1:45 PM AUTOMATED ACCESS SYSTEMS TECHNICIAN) [facility] Total Protein 7.7 6.1 - 8.4 g/dL [facility] Albumin 4.1 3.5 - 5.2 g/dL [facility] Calcium 9.1 8.6 - 10.3 mg/dL [facility] BUN 16 7 - 23 mg/dL [facility] Total Bilirubin 0.87 0.20 - 1.40 mg/dL [facility] Alk Phos, Total 86 35 - 129 IU/L [facility] AST (SGOT) 30 11 - 47 IU/L [facility] ALT (SGPT) 24 6 - 53 IU/L [facility] Creatinine 0.94 0.60 - 1.10 mg/dL [facility] Sodium 139 135 - 145 mmol/L [facility] Potassium 3.9 3.3 - 5.1 mmol/L [facility] Chloride 102 95 - 107 mmol/L [facility] CO2 Content 25 21 - 29 mmol/L [facility] Glucose 70 64 - 99 mg/dL [facility] Comment: NONFASTING GLUCOSE RANGE = 64-199 mg/dL FASTING GLUCOSE 64 - 99 = NORMAL FASTING GLUCOSE 100 - 125 = IMPAIRED FASTING GLUCOSE FASTING GLUCOSE >=126 = PROVISIONAL DIAGNOSIS OF DIABETES eGFR 73.5 >60.0 mL/min/1.7 3 m2 [facility] Blood 11/04/2024 1:45 PM AUTOMATED ACCESS SYSTEMS TECHNICIAN 11/04/2024 3:13 PM AUTOMATED ACCESS SYSTEMS TECHNICIAN Narrative [facility] - 11/04/2024 4:04 PM AUTOMATED ACCESS SYSTEMS TECHNICIAN Draw labs for first and third treatments us Michael Arias MD LAB BLOOD ORDERABLES Final Result [facility] * (ABNORMAL) CBC with auto differential (09/09/2024 1:40 PM AUTOMATED ACCESS SYSTEMS TECHNICIAN) Pathologist [facility] White Blood Count 5.0 3.6 - 11.2 K/uL [facility] RBC 3.59(L) 3.63 - 4.92 M/uL [facility] Hemoglobin 11.3(L) 11.9 - 15.5 g/dL [facility] Hematocrit 33.5(L) 36.1 - 44.3 % [facility] MCV 93.2 80.0 - 97.6 fL [facility] MCH 31.6 26.7 - 33.7 pg [facility] MCHC 33.9 32.7 - 35.5 g/dL [facility] RBC Dist Width 13.2 12.3 - 17.0 % [facility] Platelet Count 279 140 - 440 K/uL [facility] MPV 8.2 6.8 - 10.4 fL [facility] Neutrophils % 56.2 38.7 - 74.5 % [facility] Lymphocyte % 35.7 20.0 - 54.3 % [facility] Monocytes % 6.4 4.3 - 13.5 % [facility] Eosinophils % 1.2 0.0 - 6.0 % [facility] Basophil % 0.5 0.0 - 3.0 % [facility] Absolute Neutrophil 2.8 1.8 - 6.6 K/uL [facility] Absolute Lymphocyte 1.8 0.8 - 3.3 K/uL [facility] Absolute Monocyte 0.3 0.2 - 1.2 K/uL [facility] Absolute Eosinophil 0.1 0.0 - 0.5 K/uL [facility] Absolute Basophil 0.0 0.0 - 0.2 K/uL [facility] Nucleated RBC % 0.1 0.0 - 0.4 /100 WBC [facility] Blood 09/09/2024 1:40 PM AUTOMATED ACCESS SYSTEMS TECHNICIAN 09/09/2024 2:02 PM AUTOMATED ACCESS SYSTEMS TECHNICIAN us Michael Arias MD LAB BLOOD ORDERABLES Final Result [facility] * CRP (acute phase) (09/09/2024 1:40 PM AUTOMATED ACCESS SYSTEMS TECHNICIAN) Pathologist [facility] C-Reactive Protein, Acute <3.0 <5.0 mg/L [facility] Blood 09/09/2024 1:40 PM AUTOMATED ACCESS SYSTEMS TECHNICIAN 09/09/2024 2:02 PM AUTOMATED ACCESS SYSTEMS TECHNICIAN Narrative [facility] - 09/09/2024 2:42 PM AUTOMATED ACCESS SYSTEMS TECHNICIAN Draw labs for first and third treatments Michael Arias MD LAB BLOOD ORDERABLES Final Result [facility] * Comprehensive metabolic panel (09/09/2024 1:40 PM AUTOMATED ACCESS SYSTEMS TECHNICIAN) Total Protein 8.1 6.1 - 8.4 g/dL [facility] Albumin 4.4 3.5 - 5.2 g/dL [facility] Calcium 8.8 8.6 - 10.3 mg/dL [facility] BUN 12 7 - 23 mg/dL [facility] Total Bilirubin 1.00 0.20 - 1.40 mg/dL [facility] Alk Phos, Total 92 35 - 129 IU/L [facility] AST (SGOT) 27 11 - 47 IU/L [facility] ALT (SGPT) 20 6 - 53 IU/L [facility] Creatinine 0.95 0.60 - 1.10 mg/dL [facility] Sodium 139 135 - 145 mmol/L [facility] Potassium 3.8 3.3 - 5.1 mmol/L [facility] Chloride 103 95 - 107 mmol/L [facility] CO2 Content 26 21 - 29 mmol/L [facility] Glucose 82 64 - 99 mg/dL [facility] Comment: NONFASTING GLUCOSE RANGE = 64-199 mg/dL FASTING GLUCOSE 64 - 99 = NORMAL FASTING GLUCOSE 100 - 125 = IMPAIRED FASTING GLUCOSE FASTING GLUCOSE >=126 = PROVISIONAL DIAGNOSIS OF DIABETES eGFR 72.5 >60.0 mL/min/1.7 3 m2 [facility] Blood 09/09/2024 1:40 PM AUTOMATED ACCESS SYSTEMS TECHNICIAN 09/09/2024 2:02 PM AUTOMATED ACCESS SYSTEMS TECHNICIAN Narrative [facility] - 09/09/2024 2:42 PM AUTOMATED ACCESS SYSTEMS TECHNICIAN Draw labs for first and third treatments us Michael Arias MD LAB BLOOD ORDERABLES Final Result [facility] * Colonoscopy (07/02/2024 7:56 AM CDT) Anatomical Region Laterality Modality Other Narrative Procedure Note Michael Arias MD - 07/02/2024 7:56 AM CDT ENDOSCOPY LAB Patient Name: Love Beltran Procedure Date: 07/02/2024 7:56 AM Date of : 1970 Admit Type: Outpatient Age: 53 Gender: Female Attending MD: Michael Arias M.D. Room: [facility] ENDOSCOPY ROOM 03 Note Status: Finalized Procedure: Colonoscopy Indications: Follow-up of Crohn's disease of the small bowel and colon Providers: Michael Arias M.D., Mariza Camargo M.D. Referring MD: Ellis Kaur M.D. Medicines: Monitored Anesthesia Care Complications: No immediate complications. Estimated Blood Loss: Estimated blood loss was minimal. Procedure: Pre-Anesthesia Assessment: - Prior to the procedure, a History and Physicalwas performed, and patient medications and allergieswere reviewed. The patient is competent. The risks and benefits of the procedure and the sedation optionsand risks were discussed with the patient. Allquestions were answered and informed consent was obtained. Patient identification and proposed procedure were verified by the physician in the pre-procedurearea. Mental Status Examination: alert and oriented.Airway Examination: normal oropharyngeal airway and neck mobility. Respiratory Examination: clear to auscultation. CV Examination: normal. Prophylactic Antibiotics: The patient does not requireprophylactic antibiotics. Prior Anticoagulants: The patient has taken no anticoagulant or antiplatelet agents. ASA Grade Assessment: II - A patient with mild systemic disease. After reviewing the risks and benefits,the patient was deemed in satisfactory condition to undergo the procedure. The anesthesia plan was touse monitored anesthesia care (MAC). Immediately priorto administration of medications, the patient was re-assessed for adequacy to receive sedatives. The heart rate, respiratory rate, oxygen saturations, blood pressure, adequacy of pulmonary ventilation,and response to care were monitored throughout the procedure. The physical status of the patient was re-assessed after the procedure. The benefits, risks and alternatives of theprocedure and sedation were discussed and informed consentwas obtained. All questions were answered. Please referto the signed informed consent document in the medical record. The scope was passed under direct vision.The [id number] was introduced through the anusand advanced to 10 cm into the ileum. The colonoscopywas performed without difficulty. The patient tolerated the procedure well. The quality of the bowel preparation was good. The and rectum were photographed. Bowel prep was administered using a split dose. Findings: The perianal and digital rectal examinations were normal. The chad-terminal ileum appeared normal. Biopsies were taken with acold forceps for histology. Verification of patient identification for the specimen was done. Estimated blood loss was minimal. A 10 mm fistula was found at the hepatic flexure. This had ulcerationon the opening and the near colon. Scope advanced into the chad ti. The anastomosis was in the hepatic flexure and wide open without active inflammation. Single ulcer seen in the sigmoid colon and superficial ulceration at the anus. Biopsies were taken with a cold forceps for histology. Verificationof patient identification for the specimen was done. Estimated bloodloss was minimal. The Simple Endoscopic Score for Crohn's Disease was determined basedon the endoscopic appearance of the mucosa in the following segments: - Ileum: Findings include no ulcers present, no ulcerated surfaces,no affected surfaces and no narrowings. Segment score: 0. - Right Colon: Findings include large ulcers 0.5 - 2 cm in size, less than 10% ulcerated surfaces, less than 50% of surfaces affected and a single narrowing that can be passed. Segment score: 5. - Transverse Colon: Findings include no ulcers present, no ulcerated surfaces, no affected surfaces and no narrowings. Segment score: 0. - Left Colon: Findings include aphthous ulcers less than 0.5 cm insize, less than 10% ulcerated surfaces, less than 50% of surfaces affectedand no narrowings. Segment score: 3. - Rectum: Findings include aphthous ulcers less than 0.5 cm in size, less than 10% ulcerated surfaces, less than 50% of surfaces affectedand no narrowings. Segment score: 3. - Total SES-CD aggregate score: 11. Biopsies were taken with a cold forceps for histology. Verification of patient identification for the specimen was done. Estimated blood loss was minimal. Virtualchromoscopy with NBI was performed. Impression: - The examined portion of the ileum was normal. Biopsied. - Colonic fistula. - Simple Endoscopic Score for Crohn's Disease: 11, mucosal inflammatory changes secondary to Crohn's disease. Biopsied. Chromoscopy performed. Recommendation: - Discharge patient to home. - Resume previous diet. - Continue present medications. - Await pathology results. - Repeat colonoscopy in 2 years for surveillance. - Return to GI office in 6 weeks. - Perform magnetic resonance imaging (MRI) with gadolinium. - . Attending Participation: I was present and participated during the entire procedure from insertion to removal of the endoscope. Electronically signed by Michael Arias MD Michael Arias M.D. 07/02/2024 8:35:56 AM Mariza Camargo M.D. Number of Addenda: 0 Note Initiated On: 07/02/2024 7:56 AM Michael Arias MD ENDOSCOPY PROCEDURES Final Result from Last 3 Months or Most Recently Relevant to Health Maintenance Insurance [employer] [facility] H[facility]/PPO Address: [place] [address] [facility] CHOICE [employer]US [facility] H[facility]/PPO Address: [id number] [place] [address] ANTHEM ACCESS BLUE ACCESS OOS ANTHEM ACCESS Advance Directives For more information, please contact: [phone] * Full Code (Latest Code Status on File) Date Activated Date Inactivated Comments 07/02/2024 7:06 AM 07/02/2024 1:06 PM * Full Code Date Activated Date Inactivated Comments 03/11/2022 11:58 AM 03/11/2022 5:54 PM * Full Code Date Activated Date Inactivated Comments 12/01/2020 6:54 AM 12/01/2020 1:31 PM * Full Code Date Activated Date Inactivated Comments 08/30/2019 9:29 AM 08/30/2019 3:35 PM * Full Code Date Activated Date Inactivated Comments 05/18/2018 8:30 AM 05/18/2018 12:41 PM Care Teams Environmental Educator Relationship Specialty Start Date End Date Ellis Kaur MD [address] [facility] [facility] [address] [place] [address] PCP - General 12/26/16
--- OUTSIDE RECORDS SUMMARY | 2024-11-17 01:33 | XMS_ITS | Referral Summary ---
Author Organization [facility] Address [address] [place] [address] Care Team Providers Care Sample Processor Name Role Phone Ellis Kaur MD Primary Care Provider [phone] Encounters Date Type Department Care Team Description 11/08/2024 Results Follow-Up [facility] [address] [place] [address] Medical Office Building [address], [address] [place] [address] Michael Arias MD 11/04/2024 3:30 PM STRETCHER DRIER OPERATOR Lab [facility] Metabolism and Lipid [address] [facility] 5th [place] [address] [place] [phone] Crohn's disease of small and large intestines with complication (HCC) [K50.819] (Primary Dx) 11/04/2024 1:30 PM STRETCHER DRIER OPERATOR Infusion [facility] [address] 5th [place] [address] [place] [phone] Crohn's disease of small and large intestines with complication (HCC) (Primary Dx) 11/04/2024 4:00 PM STRETCHER DRIER OPERATOR Office Visit [facility] [address] 12th [place] [address] [place] [phone] Michael Arias MD Crohn's disease of small and large intestines with complication (HCC) (Primary Dx); High risk medications (not anticoagulants) long-term use; Long-term use of immunosuppressant medication; Arthralgia, unspecified joint 10/27/2024 Orders Only [facility] [address] [facility] Medical Office [address] [place] [address] Michael Arias MD 10/07/2024 10:30 AM STRETCHER DRIER OPERATOR Infusion [facility] [address] [facility] 5th [place] [address] [place] [phone] Crohn's disease of small and large intestines with complication (HCC) (Primary Dx) 09/09/2024 2:30 PM STRETCHER DRIER OPERATOR Lab [facility] Metabolism [facility] Lipid [address] [facility] 5th [place] [address] [place] [phone] Crohn's disease of small and large intestines with complication (HCC) [K50.819] (Primary Dx) 09/09/2024 1:30 PM STRETCHER DRIER OPERATOR Infusion [facility] Formerly [facility] [facility] [address]th [place] [address] [place] [phone] Crohn's disease of small and large intestines with complication (HCC) (Primary Dx) 08/17/2024 Telephone [facility] [address] 13th [place] [address] [place] [phone] Simi Chong RN from Last 3 Months Allergies No known active allergies Medications calcium [...] every day...1 tsp Active ECHINACEA ORAL qd 08/01/20 19 Active atorvastatin (LIPITOR) 80 mg tablet [...] 09/09 Encounter for preventive health examination 09/2008 Immunizations Immunization Administration Dates Next Due Hep [...] PCV 13 01/11/2016 Pneumococcal Polysaccharide PPV23 10/26/2020,09/2014,08/26/2013 Social History Tobacco Use Types Packs/Day Years [...] on file Legal Sex Female 8:48 PM STRETCHER DRIER OPERATOR Gender Identity Female 02/24/2020 3:11 PM CDT Sexual Orientation Straight 02/24/2020 3: 11 PM CDT Last Filed Vital Signs Vital Sign Reading Time Taken Comments Blood Pressure 105/74 11/04/2024 3:19 PM STRETCHER DRIER OPERATOR Pulse 84 11/04/2024 3:19 PM STRETCHER DRIER OPERATOR Temperature 36.7 C (98 F) 11/04/2024 3:19 PM STRETCHER DRIER OPERATOR Respiratory Rate 14 11/04/2024 1:35 PM STRETCHER DRIER OPERATOR Oxygen Saturation 99% 11/04/2024 1:48 PM STRETCHER DRIER OPERATOR Inhaled Oxygen Concentration - - Weight 81.6 kg (180 lb) 11/04/2024 3:19 PM STRETCHER DRIER OPERATOR Height 162.6 cm (5' 4) 11/04/2024 3:19 PM STRETCHER DRIER OPERATOR Body Mass Index 30.9 11/04/2024 3:19 PM STRETCHER DRIER OPERATOR Plan of Treatment Not on file Procedures Procedure Name Priority Date/Time Associated Diagnosis Comments CRP (ACUTE PHASE) Routine 11/04/2024 1:4 5 PM STRETCHER DRIER OPERATOR Crohn's disease of small and large intestines with complication (HCC) COMPREHENSIVE METABOLIC PANEL Routine 11/04/2024 1:45 PM STRETCHER DRIER OPERATOR Crohn's disease of small and large intestines with complication (HCC) CBC WITH AUTO DIFFERENTIAL Routine 11/04/2024 1:45 PM STRETCHER DRIER OPERATOR Crohn's disease of small and large intestines with complication (HCC) COMPREHENSIVE METABOLIC PANEL Routine 09/09/2024 1:40 PM STRETCHER DRIER OPERATOR Crohn's disease of small and large intestines with complication (HCC) CRP (ACUTE PHASE) Routine 09/09/2024 1:4 0 PM STRETCHER DRIER OPERATOR Crohn's disease of small and large intestines with complication (HCC) CBC WITH AUTO DIFFERENTIAL Routine 09/09/2024 1:40 PM STRETCHER DRIER OPERATOR Crohn's disease of small and large intestines with complication (HCC) COLONOSCOPY 07/02/2024 7:56 AM CDT from Last 3 Months or Most Recently Relevant to Health Maintenance Results * (ABNORMAL) CBC with auto differential (11/04/2024 1:45 PM STRETCHER DRIER OPERATOR) Pathologist [facility] White Blood Count 5.0 [...] [facility] Blood 11/04/2024 1:45 PM STRETCHER DRIER OPERATOR 11/04/2024 3:13 PM STRETCHER DRIER OPERATOR Michael Arias MD LAB BLOOD ORDERABLES Final Result [facility] * CRP (acute phase) (11/04/2024 1:45 PM STRETCHER DRIER OPERATOR) Pathologist [facility] C-Reactive Protein, Acute <3.0 <5.0 mg/L [facility] Blood 11/04/2024 1:45 PM STRETCHER DRIER OPERATOR 11/04/2024 3:13 PM STRETCHER DRIER OPERATOR Narrative IM CORE LAB - 11/04/2024 4:04 PM STRETCHER DRIER OPERATOR Draw labs for first and third treatments us Michael Arias MD LAB BLOOD ORDERABLES Final Result Performing Organization Address [facility] Co de Phone Number [facility] * Comprehensive metabolic panel (11/04/2024 1:45 PM STRETCHER DRIER OPERATOR) Total Protein 7.7 6.1 - 8.4 g/dL [...] [facility] Blood 11/04/2024 1:45 PM STRETCHER DRIER OPERATOR 11/04/2024 3:13 PM STRETCHER DRIER OPERATOR Narrative IM CORE LAB - 11/04/2024 4:04 PM STRETCHER DRIER OPERATOR Draw labs for first and third treatments us Michael Arias MD LAB BLOOD ORDERABLES Final Result [facility] * (ABNORMAL) CBC with auto differential (09/09/2024 1:40 PM STRETCHER DRIER OPERATOR) White Blood Count 5.0 3.6 - 11.2 [...] [facility] Blood 09/09/2024 1:40 PM STRETCHER DRIER OPERATOR 09/09/2024 2:02 PM STRETCHER DRIER OPERATOR Michael Arias MD LAB BLOOD ORDERABLES Final Result [facility] * CRP (acute phase) (09/09/2024 1:40 PM STRETCHER DRIER OPERATOR) Pathologist [facility] C-Reactive Protein, Acute <3.0 <5.0 mg/L [facility] Blood 09/09/2024 1:40 PM STRETCHER DRIER OPERATOR 09/09/2024 2:02 PM STRETCHER DRIER OPERATOR Narrative [facility] CORE [facility] - 09/09/2024 2:42 PM STRETCHER DRIER OPERATOR Draw labs for first and third treatments Michael Arias MD LAB BLOOD ORDERABLES Final Result [facility] * Comprehensive metabolic panel (09/09/2024 1:40 PM STRETCHER DRIER OPERATOR) Total Protein 8.1 6.1 - 8.4 g/dL [...] [facility] Blood 09/09/2024 1:40 PM STRETCHER DRIER OPERATOR 09/09/2024 2:02 PM STRETCHER DRIER OPERATOR Narrative [facility] C[facility] - 09/09/2024 2:42 PM STRETCHER DRIER OPERATOR Draw labs for first and third treatments us Michael Arias MD LAB BLOOD ORDERABLES Final Result [facility] * Colonoscopy (07/02/2024 7:56 AM CDT) Anatomical Region Laterality Modality Other Narrative Procedure Note Michael Arias MD - 07/02/2024 7:56 AM CDT ENDOSCOPY LAB Patient Name: Love Beltran Procedure Date: 07/02/2024 7:56 AM Date of : 1970 Admit Type: Outpatient Age: 53 Gender: Female Attending MD: Michael Arias M.D. Room: [facility] ENDOSCOPY ROOM 03 Note Status: Finalized Procedure: [...] The scope was passed under direct vision.The [id number] was introduced through the anusand advanced to [...] Maintenance Insurance GENERIC [employer] CHOICE PLUS [facility] CHOICE PLUS ANTHEM ACCESS BLUE ACCESS OOS ANTHEM ACCESS Advance Directives For more information, please contact: [phone] * Full Code (Latest Code Status on [...] 8:30 AM 05/18/2018 12:41 PM Care Teams Sample Processor Relationship Specialty Start Date End Date Ellis Kaur MD [address] [employer] [place], [place] [id number] PCP - General 12/26/16
[2024-11-17 06:10] VITALS: BP 103/67; PULSE 84; RESP 14; TEMP 36.4; O2SAT 100
[2024-11-17] MEDS: ACETAMINOPHEN 500 MG TABLET 1000 MG PO (06:30)
[2024-11-17] MEDS: LACTATED RINGERS 1,000 ML 30 ML IV CONT (06:30)
--- NOTE | 2024-11-17 07:01 | WPDANESEPPF ---
Anes - Initial Pre Proc Eval Procedure: Operation Date: 11/17/24 07:30 Proposed Procedures p Hysteroscopy Dilation and Curettage with Possible Removal of Endometrial Lesions - Nixon Weinberg MD Date/Time: 11/17/24 07:01 Surgeon: Nixon Weinberg MD Pre Op Diagnosis: Abnormal Uterine and Vaginal Bleeding Patient Data Age: 53 Gender: F Height: 1.63 m Weight: 80 kg Allergies Allergy/AdvReac Type Severity Reaction Status Date / Time No Known Allergies Allergy Unknown Verified 11/08/24 13:17 Home Medications ?Medication ?Instructions ?Recorded ?Confirmed ?Type calcium carbonate 500 mg PO DAILY 09/10/19 11/13/24 History cetirizine 10 mg tablet 10 mg PO DAILY 09/10/19 11/13/24 History mecobalamin (vitamin B12) 5,000 5,000 mcg PO QAM 01/20/20 11/13/24 History mcg disintegrating tablet sulfasalazine 500 mg tablet 0.5 g PO DAILY 08/09/21 11/13/24 History cholecalciferol (vitamin D3) 100 100 mcg PO DAILY 10/28/22 11/13/24 History mcg (4,000 unit) tablet biotin 1 mg capsule 1 mg PO DAILY 03/04/23 11/13/24 History bupropion HCl 150 mg 24 hr tablet, See Rx Instructions .Route 07/04/24 11/13/24 Rx extended release .COMPLEX #90 tabs losartan 25 mg tablet 25 mg PO DAILY #90 tabs 07/04/24 11/13/24 Rx magnesium oxide 75 mg BYMOUTH DAILY 07/29/24 11/13/24 History wheat dextrin 3 gram/4 gram oral 1 packet PO DAILY 07/29/24 11/13/24 History powder (Benefiber Sugar Free (dextrin)) atorvastatin 80 mg tablet See Rx Instructions .Route 10/11/24 11/13/24 Rx .COMPLEX #90 tabs valacyclovir 1 gram tablet See Rx Instructions .Route 10/11/24 11/13/24 Rx .COMPLEX #180 tabs risankizumab-rzaa 60 mg/mL 600 mg IV ONCE 10/26/24 11/13/24 History intravenous solution (Skyrizi) icosapent ethyl 1 gram capsule 1 g PO DAILY 11/08/24 11/08/24 History (Vascepa) potassium gluconate 550 mg (90 mg) 550 mg PO DAILY 11/08/24 11/08/24 History tablet tirzepatide (weight loss) 12.5 10 mg subcut WEEKLY 11/08/24 11/08/24 History mg/0.5 mL subcutaneous pen injector (Zepbound) trazodone 50 mg tablet See Rx Instructions .Route 11/08/24 11/08/24 History .COMPLEX PRN SLEEPLESSNESS Patient hx anesthesia problems: none Family hx anesthesia problems: none Results Review: All pre-operative results and documents have been reviewed as part of the pre-operative evaluation. [facility] Past Medical History Medical History BMI 31.0-31.9,adult BMI 34.0-34.9,adult Borderline abnormal TFTs Iron deficiency anemia Encounter for routine adult health examination with abnormal findings Frequent headaches Vaginal discharge Ovarian cyst Inconclusive mammogram Gallbladder attack Ear pain, right Chronic pain of right thumb Calcaneal spur of right foot Abnormal mammogram of right breast Cough Low hemoglobin and low hematocrit Abnormal thyroid function test Encounter for preventive health examination Colon cancer screening Vitamin B12 deficiency BMI 39.0-39.9,adult Abnormal Pap smear of cervix BMI 38.0-38.9,adult Nicotine abuse Screening for diabetes mellitus Personal history of nicotine dependence Anxiety Follow up Shingles Benign essential hypertension Crohn's disease BMI 37.0-37.9, adult COURTNEY on CPAP Encounter for routine adult health examination without abnormal findings 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 Fatty liver IBS (irritable bowel syndrome) Hyperlipidemia Vitamin D deficiency Surgical History Surgical History Status post surgical removal of malignant neoplasm of skin S/P LASIK surgery S/P cholecystectomy H/O exploratory laparotomy S/P small bowel resection S/P appendectomy History of dilatation and curettage Family History Family History Mother Diabetes mellitus Hypertension Other Family history of malignant neoplasm of breast Family history of malignant neoplasm of cervix Family history of malignant neoplasm of ovary Social History Social History Smoking packs per day: 0.25 Smoking cigarettes per day: 5.0 Years smoked: 30 Smoking pack-years: 7.50 Smoking status: Former smoker Tobacco type: cigarettes Second hand tobacco smoke exposure: Yes Smoking end date: 07/22/22 Alcohol intake: current Drinks per week: 3 Alcohol use details: 3 PER MONTH Lack of Transportation: No Lack of Food: Never True Current Housing: I Have Housing Concerned About Future Housing: No Difficulty Paying Gas/Electric Bills: No Difficulty Paying for Meds: No Currently Unemployed: No Education: High School Diploma/GED Difficulty w/ Childcare or Family Care: No Living arrangements: with family Occupation/Education: occupation Gender identity (if verbalized by the patient): Female Spiritual care concerns: No Anes - Eval Final PreProcedure Day of Procedure 11/17/24 07:01 Patient weight: obese Lungs: normal air movement Airway: Mallampati scale class II Neurological: alert and oriented Last oral intake: >/= 8 hours ASA classification: III Emergent: no Anesthetic plan: proceed Anesthesia type and monitoring: general GIVS and standard monitoring Results Review: All pre-operative results and documents have been reviewed as part of the pre-operative evaluation. HTN, hyperlipidemia, COURTNEY no CPAP since 51 lb wt loss, ex smoker quit 2021. Pt off GLP1 for 15 days. Informed Consent: The patient's anesthetic plan and its attendant risks and benefits were discussed with the patient/family/POA. Questions were solicited and answers provided to the satisfaction of the patient/family/POA.
--- NOTE | 2024-11-17 07:08 | P.HP_ITS ---
H&P: HPI History of Present Illness Date/Time: 11/17/24 07:08 Chief Complaint: Abnormal ultrasound finding Narrative: 53 y/o perimenopausal female with ultrasound finding of 2.9 upper cervical lesion. She was recommended for hysteroscopy dilation and curettage and removal of lesion if present. She has had a prior D and C which showed disordered endometrium benign. She has been counseled regarding risk benefit of hysteroscopy and dilation and curettage and agrees with procedure. [facility] Past Medical History Medical History BMI 31.0-31.9,adult BMI 34.0-34.9,adult Borderline abnormal TFTs Iron deficiency anemia Encounter for routine adult health examination with abnormal findings Frequent headaches Vaginal discharge Ovarian cyst Inconclusive mammogram Gallbladder attack Ear pain, right Chronic pain of right thumb Calcaneal spur of right foot Abnormal mammogram of right breast Cough Low hemoglobin and low hematocrit Abnormal thyroid function test Encounter for preventive health examination Colon cancer screening Vitamin B12 deficiency BMI 39.0-39.9,adult Abnormal Pap smear of cervix BMI 38.0-38.9,adult Nicotine abuse Screening for diabetes mellitus Personal history of nicotine dependence Anxiety Follow up Shingles Benign essential hypertension Crohn's disease BMI 37.0-37.9, adult COURTNEY on CPAP Encounter for routine adult health examination without abnormal findings 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 Fatty liver IBS (irritable bowel syndrome) Hyperlipidemia Vitamin D deficiency Surgical History Surgical History Status post surgical removal of malignant neoplasm of skin S/P LASIK surgery S/P cholecystectomy H/O exploratory laparotomy S/P small bowel resection S/P appendectomy History of dilatation and curettage Family History Family History Mother Diabetes mellitus Hypertension Other Family history of malignant neoplasm of breast Family history of malignant neoplasm of cervix Family history of malignant neoplasm of ovary Social History Social History Smoking packs per day: 0.25 Smoking cigarettes per day: 5.0 Years smoked: 30 Smoking pack-years: 7.50 Smoking status: Former smoker Tobacco type: cigarettes Second hand tobacco smoke exposure: Yes Smoking end date: 07/22/22 Alcohol intake: current Drinks per week: 3 Alcohol use details: 3 PER MONTH Lack of Transportation: No Lack of Food: Never True Current Housing: I Have Housing Concerned About Future Housing: No Difficulty Paying Gas/Electric Bills: No Difficulty Paying for Meds: No Currently Unemployed: No Education: High School Diploma/GED Difficulty w/ Childcare or Family Care: No Living arrangements: with family Occupation/Education: occupation Gender identity (if verbalized by the patient): Female Spiritual care concerns: No Meds Home Medications and Allergies Home Medications ?Medication ?Instructions ?Recorded ?Confirmed ?Type calcium carbonate 500 mg PO DAILY 09/10/19 11/13/24 History cetirizine 10 mg tablet 10 mg PO DAILY 09/10/19 11/13/24 History mecobalamin (vitamin B12) 5,000 5,000 mcg PO QAM 01/20/20 11/13/24 History mcg disintegrating tablet sulfasalazine 500 mg tablet 0.5 g PO DAILY 08/09/21 11/13/24 History cholecalciferol (vitamin D3) 100 100 mcg PO DAILY 10/28/22 11/13/24 History mcg (4,000 unit) tablet biotin 1 mg capsule 1 mg PO DAILY 03/04/23 11/13/24 History bupropion HCl 150 mg 24 hr tablet, See Rx Instructions .Route 07/04/24 11/13/24 Rx extended release .COMPLEX #90 tabs losartan 25 mg tablet 25 mg PO DAILY #90 tabs 07/04/24 11/13/24 Rx magnesium oxide 75 mg BYMOUTH DAILY 07/29/24 11/13/24 History wheat dextrin 3 gram/4 gram oral 1 packet PO DAILY 07/29/24 11/13/24 History powder (Benefiber Sugar Free (dextrin)) atorvastatin 80 mg tablet See Rx Instructions .Route 10/11/24 11/13/24 Rx .COMPLEX #90 tabs valacyclovir 1 gram tablet See Rx Instructions .Route 10/11/24 11/13/24 Rx .COMPLEX #180 tabs risankizumab-rzaa 60 mg/mL 600 mg IV ONCE 10/26/24 11/13/24 History intravenous solution (Skyrizi) icosapent ethyl 1 gram capsule 1 g PO DAILY 11/08/24 11/08/24 History (Vascepa) potassium gluconate 550 mg (90 mg) 550 mg PO DAILY 11/08/24 11/08/24 History tablet tirzepatide (weight loss) 12.5 10 mg subcut WEEKLY 11/08/24 11/08/24 History mg/0.5 mL subcutaneous pen injector (Zepbound) trazodone 50 mg tablet See Rx Instructions .Route 11/08/24 11/08/24 History .COMPLEX PRN SLEEPLESSNESS Allergies Allergy/AdvReac Type Severity Reaction Status Date / Time No Known Allergies Allergy Unknown Verified 11/08/24 13:17 Assessment and Plan Assessment and plan (1) Abnormal finding on ultrasound: Code(s): R93.89 - Abnormal findings on diagnostic imaging of other specified body structures Status: Acute Assessment and Plan: Will proceed with hysteroscopy and dilation and curettage and removal of lesion if present.
--- NOTE | 2024-11-17 07:11 | WPDHPUPDATE1 ---
History and Physical Update Update Date/Time: 11/17/24 07:11 History and Physical has been reviewed, including an updated exam of the patient. There are NO changes in the patient's condition. Risks, benefits, and alternatives have been discussed and questions answered. Patient agrees to proceed with procedure.
[2024-11-17] MEDS: LIDOCAINE 1% LOCAL INJ 10 ML VIAL INFILTRATE (07:48)
[2024-11-17] MEDS: ceFAZolin SODIUM 1 GM VIAL 2 GM IV PUSH (07:49)
--- NOTE | 2024-11-17 07:57 | S_PTH ---
PATIENT: Anabel Beltran LOC: [facility]#:[id number] AGE/SX: 53/F ROOM: RE11/17/[address]: Nixon Weinberg MD : 1970 BED: DIS: 11/17/2024 SPEC #: [id number] RECD: 11/17/24 10:51 STATUS: DEMETRA REQ #: [id number] SAHARA: 11/17/24 07:[address]: Nixon Weinberg DEPT: [facility] Surgical RECD BY: Sis Gonzalez ENTERED: 11/17/24 10:52 SP TYPE: Surgical OTHR DR: Ellis Kaur MD Tissues: A - Endometrial Curettings Procedures: Hematoxylin and Eosin Stain Gross and Microscopic Level 4
[2024-11-17] MEDS: KETOROLAC 30 MG/ML VIAL (*BKC) IV PUSH (08:06)
[2024-11-17 08:08] VITALS: BP 119/77; PULSE 70; RESP 14; O2SAT 99
--- NOTE | 2024-11-17 08:14 | W.PM.PROC2 ---
Procedure Note - Detailed Date of Procedure 11/17/24 Pre-op Diagnosis Abnormal Uterine Bleeding 2. Abnormal ultrasound finding Post-op Diagnosis Other (Endometrial and upper cervical growths ) Procedure Performed Hysteroscopy with dilation and curettage and removal of several endometrial lesions with Ernestoeta Surgeon Nixon Weinberg MD Anesthesia MAC and Local Indications Abnormal ultrasound findings, irregular periods. Findings Uterus sound to 6.5cm, lesion firm protruding from cervix dilating cervix, approximately 1.5 cm, several polypoid lesions upper uterine cavity and lower, the rest of cavity appeared atrophic Description of Procedure After informed consent was obtained patient was taken to the operating room and adequate IV sedation was administered. Attention was turned to the vagina. Speculum was inserted. Single-tooth tenaculum placed on the anterior lip of the cervix.10 cc of 1% lidocaine was injected at the cervical vaginal interface at the 2 and 5 and 8 and 10 positions. The uterus was sounded to 6.5 cm. The cervix was dilated to an 8 Rice dilator. there was a lesion that was protruding at the os. Was grasped with [place] and was removed. The hysteroscope was inserted into the cavity. The findings were Per above. The Aveta instrument was used to removed the endometrial lesions. The rest of cavity normal, atrophic appearing. A curettage was performed, minimal tissue. The hysteroscope was removed. The hysteroscope was removed the single-tooth tenaculum was removed hemostasis was noted at the tenaculum site. Sponge count correct. The patient taken to recovery in stable condition. Estimated Blood Loss 5 Drains No Packing No Pathology Yes ( shavings of endometrial lesion and curetting) Complications No immediate complications Condition Stable Disposition Same day [facility] Billing Surgery - Charge Forward: Surgery Billing
[2024-11-17] MEDS: oxyCODONE HCL (*CRX) 5 MG TAB IR PO (08:34)
[2024-11-17 08:35] VITALS: BP 115/69; PULSE 55; RESP 20
[2024-11-17 08:49] LABS: BEDSIDEPREGUCG Negative (Negative)
[2024-11-17 09:00] VITALS: BP 115/70; PULSE 49; RESP 20
== END 2024-11-17 09:05 | disposition home or self-care (01) ==
PROVIDERS: PCP Internal Medicine; Visit Provider Obstetrics & Gynecology
PROC: 0U5B8ZZ Destruction of Endometrium, Via Natural or Artificial Opening Endoscopic (ICD-10-PCS; CPT 58563; principal; 2024-11-17 07:30)
DX: D25.0 Submucous leiomyoma of uterus (principal); N92.6 Irregular menstruation, unspecified; E78.5 Hyperlipidemia, unspecified; E55.9 Vitamin D deficiency, unspecified; I10 Essential (primary) hypertension; D50.9 Iron deficiency anemia, unspecified; E53.8 Deficiency of other specified B group vitamins; F41.9 Anxiety disorder, unspecified; K50.90 Crohn's disease, unspecified, without complications; G47.33 Obstructive sleep apnea (adult) (pediatric); E66.9 Obesity, unspecified; Z68.30 Body mass index [BMI] 30.0-30.9, adult; Z99.89 Dependence on other enabling machines and devices; Z79.85 Long-term (current) use of injectable non-insulin antidiabetic drugs; Z79.899 Other long term (current) drug therapy; Z90.49 Acquired absence of other specified parts of digestive tract; Z87.891 Personal history of nicotine dependence
CPT/HCPCS: 58561; 88305; A9270; J0690; J1100; J1885; J2003; J2250; J2405; J2704; J3010; J7120

== ENCOUNTER 2025-04-26 12:09 | Outpatient (CLI) | payer OTHER, SELFPAY ==
--- NOTE | ~2025-04-26 | MM_ITS ---
EXAMINATION: MM screening harsha BI w cleopatra HISTORY: Screening TECHNIQUE: Craniocaudal and mediolateral oblique 3-D tomosynthesis images were obtained and synthetic 2-D images were generated. CAD analysis was submitted and interpreted. COMPARISON: Comparison to multiple prior studies sequentially, with oldest reviewed study dated 06/23. BREAST PARENCHYMAL COMPOSITION: There are scattered areas of fibroglandular density. FINDINGS: There is no evidence of suspicious mass, calcification, or architectural distortion to sug gest malignancy in either breast. IMPRESSION: 1. No mammographic evidence of malignancy. 2. Recommend routine screening mammography in one year. BI-RADS Category 1: Negative Reviewed, dictated and finalized at location B.
--- OUTSIDE RECORDS SUMMARY | 2025-04-26 12:12 | XMS_ITS | Referral Summary ---
Author Organization [facility] Address [address] [place] [address] Care Team Providers Care Mixer And Scaler Name Role Phone Ellis Kaur MD Primary Care Provider Encounters Date Type Department Care Team Description 04/25/2025 Results Follow-Up [facility] Gastroenterology [address] 12th [place] [address] [place] [address] Michael Arias MD Surgical pathology 04/22/2025 9:00 AM CDT - 04/22/2025 10:00 AM CDT Surgery [facility] Endoscopy [address] [place] [address] Michael Arias MD COLON BIOPSY 04/22/2025 8:47 AM CDT Anesthesia Event [facility] Endoscopy [address] [place] [address] Musa Ojeda MD 04/22/2025 7:47 AM CDT - 04/22/2025 10:11 AM CDT Hospital Encounter [facility] Endoscopy [address] [place] [address] Michael Arias MD Crohn's disease of small and large intestines with complication (HCC) Discharge Disposition: Discharge to home or self care 03/18/2025 Orders Only [facility] Scanning, Provider 02/22/2025 Telephone [facility] Gastroenterology [address] [place] [address] Tayler Deleon RN GI pre procedure assessment 02/22/2025 Orders Only [facility] Gastroenterology [address] [facility] [place] [address] Michael Arias MD Crohn's disease of small and large intestines with complication (HCC) (Primary Dx) 02/03/2025 3:20 PM CDT Office Visit [facility] Gastroenterology [facility] [facility] 12th [place] [address] [place] [address] Michael Arias MD Crohn's disease of small and large intestines with complication (HCC) (Primary Dx); High risk medications (not anticoagulants) long-term use; Long-term use of immunosuppressant medication from Last 3 Months Allergies No known active allergies Medications calcium carbonate/vitam in D3 (CALCIUM 500 + D ORAL) daily Unsure of doses Active cyanocobalamin, vitamin B-12, 1,000 mcg tablet extended release 5 tablets daily 11/26/2017 Active cetirizine (ZyrTEC) 10 mg tablet daily Active VASCEPA 1 gram capsule TK 2 CS PO BID 5 07/12/2019 Active ECHINACEA ORAL qd 04/22/2019 Acti ve atorvastatin (LIPITOR) 80 mg tablet daily 07/20/2020 Active valACYclovir (VALTREX) 1 gram tablet prn 08/07/2020 Active buPROPion XL (WELLBUTRIN XL) 150 mg 24 hr tablet Take 1 tablet (150 mg total) by mouth every morning Active cholecalciferol (Vitamin D3) 5,000 unit tablet daily Active traZODone (DESYREL) 50 mg tablet nightly 03/22/2022 Active tirzepatide (ZEPBOUND SUBQ) Inject under the skin Active risankizumab-rz aa (Skyrizi) 360 mg/2.4 mL (150 mg/mL) wearable injectorIndicat ions:Crohn's Disease Inject 360 mg under the skin every 8 (eight) weeks Labs due 04/2025 2.4 mL 1 01/17/2025 Active BIOTIN ORAL Take by mouth QD Active Active Problems Problem Noted Date Diagnosed Date Encounter for routine cancer follow-up Crohn's disease with complication 04/30/2021 BMI 39.0-39.9,adult [...] containing alc ohol? 2-3 times a week 04/22/2025 Q2: How many drinks containi ng alcohol do you have on a typical day when you are drinking? 1 or 2 04/22/2025 Q3: How often do you have si x or more drinks on one occasion? Never 04/22/2025 Personal Safety Answer Date Recorded Have you ever been in or are you currently in a harmful physical or emotional relationship or is someone making you feel afraid or unsafe? 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 Gender Identity Female 02/24/2020 3:11 PM CDT Sexual Orientation Straight 02/24/2020 3: 11 PM CDT Last Filed Vital Signs Vital Sign Reading Time Taken Comments Blood Pressure 133/74 04/22/2025 9:45 AM CDT Pulse 78 04/22/2025 9:45 AM CDT Temperature 36.6 C (97.9 F) 04/22/2025 9:20 AM CDT Respiratory Rate 16 04/22/2025 9:45 AM CDT Oxygen Saturation 95% 04/22/2025 9:45 AM CDT Inhaled Oxygen Concentration - - Weight 72.6 kg (160 lb) 04/22/2025 8:35 AM CDT Height 162.6 cm (5' 4) 04/22/2025 8:35 AM CDT Body Mass Index 27.46 04/22/2025 8:35 AM CDT Plan of Treatment Not on file Procedures Procedure Name Priority Date/Time Associated Diagnosis Comments POCT GLUCOSE DEVICE Routine 04/22/2025 9 :39 AM CDT SURGICAL PATHOLOGY Routine 04/22/2025 9: 02 AM CDT Crohn's disease of small and large intestines with complication (HCC) COLON BIOPSY 04/22/2025 8:47 AM CDT Crohn's disease of small and large intestines with complication (HCC) COLONOSCOPY 04/22/2025 8:46 AM CDT POCT GLUCOSE DEVICE Routine 04/22/2025 8 :42 AM CDT POCT HCG, URINE Routine 04/22/2025 SCAN - LABS 03/18/2025 from Last 3 Months Results * POCT glucose (04/22/2025 9:39 AM CDT) Glucose, POC 77 70 - 199 mg/dL Comment: Interpretive Data Glucose is assumed to be non-fasting. Fasting Glucose reference ranges are: 0 - 150 years: 70 mg/dL - 99 mg/dL Current interpretive data was last revised on 2014. POC Device Number [id number] JEREMI REDDYCH Blood 04/22/2025 9:39 AM CDT 04/22/2025 9:39 AM CDT us Michael Arias MD LAB POCT ORDERABLES - DEVIC E Final Result Performing Organization Address City/State/[facility] Co de Phone Number JEREMI MONTOYACH [address] [facility]. Department [place] [address] * Surgical pathology (04/22/2025 9:02 AM CDT) Tissue (Ileum, Biopsy) 04/22/2025 9:02 AM CDT Tissue specimen (specimen) (Colon, Biopsy) 04/22/2025 9:04 AM CDT Tissue specimen (specimen) (Colon, Biopsy) 04/22/2025 9:04 AM CDT Tissue specimen (specimen) (Colon, Biopsy) 04/22/2025 9:04 AM CDT Tissue specimen (specimen) (Polyp(s), colon/colorectal, esophageal, gastric) 04/22/2025 9:14 AM CDT Narrative PATHOLOGY [facility] - 04/25/2025 11:05 AM CDT EPIC results best viewed via link to PDF [facility] [place] [address] Note to Patients: This report may contain a detailed description of human tissue sent by a health care provider to the laboratory for pathologic evaluation. The content of this report is essential for diagnosis and may provide important critical findings. This information may be unfamiliar to patients to review without a medical professional present. It is advised that the patient review this report in the presence of a health care provider who can answer questions and explain the details. SURGICAL PATHOLOGY REPORT FINAL Patient Name: LOVE BELTRAN Gender: F : 1970 (Age: 54) Address: [address] [place] [address] Hospital #: [id number] Taken:04/22/2025 Received:04/22/2025 Reported: 04/25/2025 Patient Type: [facility] SAME Client [facility] Service: Gastro Location: Physician(s): MD Ellis Karimi M.D. Diagnosis: A. Small bowel, neoterminal ileum, biopsy - Small intestinal mucosa with inactive chronic ileitis - No granulomas or dysplasia identified B. Large bowel, transverse, biopsy - Colonic mucosa with no significant histopathologic abnormality - No granulomas or dysplasia identified C. Large bowel, sigmoid, biopsy - Colonic mucosa with no significant histopathologic abnormality - No granulomas or dysplasia identified D. Large bowel, rectum, biopsy - Colonic mucosa with no significant histopathologic abnormality - No granulomas or dysplasia identified E. Large bowel, rectum, polyp, biopsy - Colonic mucosa with mild architectural distortion and hyperplastic changes - No evidence of active inflammation - No granulomas or dysplasia identified 04/25/2025 08:38 By this signature, I attest that the above diagnosis is based upon my personal examination of the slides(and/or other material indicated in the diagnosis). Uziel Christy M.D. Report Electronically Reviewed and Signed Out By Uziel Christy M.D. 04/25/2025 11:05:32 Bill Malave M.D. History: The patient is a 54-year-old woman with Crohn's disease of small and large intestines with complication. Operative procedure: Colonoscopy. Specimen(s) Received: A: Neoterminal ileum biopsies B: Transverse colon biopsies C: Sigmoid colon biopsies D: Rectal colon biopsies E: Rectal polyp biopsies Gross Description: Received in five formalin jars labeled with the patient's identifiers. A. Labeled neoterminal ileum biopsies are multiple irregular tissue fragment(s) (measuring 1.3 x 0.4 x 0.1 cm in aggregate. Stained with eosin). Labeled A1. Jar 0. B. Labeled transverse colon biopsies are multiple irregular tissue fragment(s) (measuring 1.7 x 0.4 x 0.1 cm in aggregate. Stained with eosin). Labeled B1. Jar 0. C. Labeled sigmoid colon biopsies are multiple irregular tissue fragment(s) (measuring 1.8 x 0.4 x 0.1 cm in aggregate. Stained with eosin). Labeled C1. Jar 0. D. Labeled rectal colon biopsies are two irregular tissue fragment(s) (measuring 1.1 x 0.4 x 0.1 cm in aggregate. Stained with eosin). Labeled D1. Jar 0. E. Labeled rectal polyp biopsies is a single irregular tissue fragment(s) (measuring 0.9 x 0.4 x 0.1 cm. Stained with eosin). Labeled E1. Jar 0. cnewho04/22/2025 10:23 PA(s): FOSTER Pizano By this signature, I attest that the above diagnosis is based upon my personal examination of the slides(and/or other material). Addenda/Procedures Microscopic slide review and interpretation for this case was performed at [facility], Department of Surgical Pathology, [address] [id number], [place] [address] CLIA # [id number] The performance characteristics of some immunohistochemical stains, fluorescence in-situ hybridization tests and immunophenotyping by flow cytometry cited in this report (if any) were determined by the Surgical Pathology and Flow Cytometry Departments at [facility] as part of an ongoing compliance quality performance analyst program and in compliance with federally mandated regulations drawn from the Clinical Laboratory Improvement Act of 1988 (CLIA '88). Some of these tests rely on the use of analyte specific reagents and are subject to specific labeling requirements by the US Food and Drug Administration. Such diagnostic tests may only be performed in a facility that is certified by the Department of Health and Human Services as a high complexity laboratory under CLIA '88. The FDA has determined that such clearance or approval is not necessary. This test is used for clinical purposes. It should not be regarded as investigational or for research. Nevertheless, federal rules concerning the medical use of analyte specific reagents require that the following disclaimer be attached to the report: This test was developed and its performance characteristics determined by the Surgical Pathology and Flow Cytometry Departments of [facility]. It has not been cleared or approved by the U. S. Food and Drug Administration. IMAGES AND SCANNED DOCUMENTS, IF INCLUDED, ONLY VIEWABLE IN PDF VERSION OF REPORT us Michael Arias MD LAB PATHOLOGY ORDERABLES Fi nal Result PATHOLOGY [facility] [phone] * Colonoscopy (04/22/2025 8:46 AM CDT) Anatomical Region Laterality Modality Other Narrative Procedure Note Michael Arias MD - 04/22/2025 8:46 AM CDT ENDOSCOPY LAB Patient Name: Love Beltran Procedure Date: 04/22/2025 8:46 AM Date of : 1970 Admit Type: Outpatient Age: 54 Gender: Female Attending MD: Michael Arias M.D., Room: [facility] ENDOSCOPY ROOM 03 Note Status: Finalized Procedure: Colonoscopy Indications: Follow-up of Crohn's disease of the small bowel and colon Providers: Michael Arias M.D., Wayne Sy MD Referring MD: Ellis Kaur M.D. Medicines: Monitored [...] the patient was re-assessed after the procedure. - Using IV propofol under the supervision of a SENIOR MARKETING DATA ANALYST was determined to be medically necessary for this procedure based on review of the patient's medical history, medications, and prior anesthesiahistory. The benefits, risks and alternatives of theprocedure and sedation were discussed and informed consentwas obtained. All questions were answered. Please referto the signed informed consent document in the medical record. The scope was passed under direct vision.The [id number] was introduced through the anusand advanced to the ileocolonic anastomosis. The colonoscopy was performed without difficulty. The patient tolerated the procedure well. The qualityof the bowel preparation was good. Anatomicallandmarks were photographed. The colonoscopy was performed without difficulty. The patient tolerated the procedure well. The quality of the bowelpreparation was excellent. Bowel prep was administered using a split dose. Findings: The chad-terminal ileum contained a 14 mm fistula. This appeared as a stenosis, characterized by erythema and ulcerated surface. Scope was placed distal to the narrowing and showed multiple small aphthous ulcerations. Biopsies were taken with a cold forceps for histology. The afferent limb of the chad-terminal ileum appeared normal, fixlmh11 cm examined. Patchy areaa of mildly erythematous mucosa with a loss of vascularity was found in the sigmoid colon. A 5 mm area of polypoid mucosa with surrounding scarring was found in the rectum. Biopsies were taken with a cold forceps for histology. The remainder of the colon had normal mucosa when evaluated with HDWL and NBI. Biopsies were taken with a cold forceps for histology fromthe transverse, sigmoid, and rectum The perianal exam findings include anal canal stenosis, minimal resistance with passage of finger. The Simple Endoscopic Score for Crohn's Disease was determined basedon the endoscopic appearance of the mucosa in the following segments: - Ileum: Findings include large ulcers 0.5-2 cm in size, less than10% ulcerated surfaces, less than 50% of surfaces affected and a single narrowing that can be passed. Segment score: 5. - Right Colon: Findings include no ulcers present, no ulcerated surfaces, no affected surfaces and no narrowings. Segment score: 0. - Transverse Colon: Findings include no ulcers present, no ulcerated surfaces, no affected surfaces and no narrowings. Segment score: 0. - Left Colon: Findings include no ulcers present, no ulceratedsurfaces, less than 50% of surfaces affected and no narrowings. Segment score:1. - Rectum: Findings include no ulcers present, no ulcerated surfaces,no affected surfaces and a single narrowing that can be passed. Segment score: 1. - Total SES-CD aggregate score: 7. Impression: Active Crohn's Disease, improved from last examination. 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 - One 5 mm polypoid lesion in the rectum with surrounding scarring. Likely related to previous Crohn's disease and distortion of the architecture. Biopsied. - Anal canal stenosis found on perianal exam. - Simple Endoscopic Score for Crohn's Disease: 7, mucosal inflammatory changes. Recommendation: - Continue present medications. - Await pathology results. - Repeat colonoscopy for surveillance based on clinical status at that time. - Return to GI office in 6 weeks to discussescalation of therapy. - . Attending Participation: I was present and participated during the entire procedure from insertion to removal of the endoscope. Electronically signed by Michael Arias MD Michael Arias M.D. 04/22/2025 9:35:18 AM Wayne Sy MD Number of Addenda: 0 Note Initiated On: 04/22/2025 8:46 AM Michael Arias MD ENDOSCOPY PROCEDURES Final Result * POCT glucose (04/22/2025 8:42 AM CDT) Glucose, POC 85 70 - 199 mg/dL Comment: Interpretive Data Glucose is assumed to be non-fasting. Fasting Glucose reference ranges are: 0 - 150 years: 70 mg/dL - 99 mg/dL Current interpretive data was last revised on 2014. POC Device Number [id number] JEREMI BJWCH Blood 04/22/2025 8:42 AM CDT 04/22/2025 8:42 AM CDT Michael Arias MD LAB POCT ORDERABLES - DEVIC E Final Result [facility] [address] [facility]. [place] [address] * POCT hCG, urine (04/22/2025) HCG, ur, POC Negative Negative Lot Number [id number] QC Backgroud Clear Acceptable QC Control Line Acceptable Urine 04/22/2025 Historical Provider POINT OF CARE TEST ORDERA BLES Final Result * SCAN - LABS (03/18/2025) us Provider Scanning Final Result from Last 3 Months Insurance GENERIC COPAY ASSIST CHOICE PLUS [facility] CHOICE PLUS ANTHEM ACCESS BLUE ACCESS [facility] CHOICE PLUS [place] [id number] Advance Directives For more information, please contact: [phone] * Full Code (Latest Code Status on File) Date Activated Date Inactivated Comments 04/22/2025 8:15 AM 04/22/2025 2:16 PM * Full Code Date Activated Date Inactivated Comments 07/02/2024 7:06 AM 07/02/2024 1:06 PM * Full Code Date Activated Date Inactivated Comments 03/11/2022 11:58 AM 03/11/2022 5:54 PM * Full Code Date Activated Date Inactivated Comments 12/01/2020 6:54 AM 12/01/2020 1:31 PM * Full Code Date Activated Date Inactivated Comments 08/30/2019 9:29 AM 08/30/2019 3:35 PM Care Teams Mixer And Scaler Relationship Specialty Start Date End Date Ellis Kaur MD [address] [facility] [address] [place] [address] PCP - General 12/26/16
--- OUTSIDE RECORDS SUMMARY | 2025-04-26 12:12 | XMS_ITS | Encounter Summary ---
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 Gender Identity Female 02/24/2020 3:11 PM CDT Sexual Orientation Straight 02/24/2020 3: 11 PM CDT documented as of this encounter Plan of Treatment Not on file documented as of this encounter Procedures Procedure Name Priority Date/Time Associated Diagnosis Comments SCAN - LABS 03/18/2025 documented in this encounter Results * SCAN - LABS (03/18/2025) us Provider Scanning Final Result documented in this encounter Visit Diagnoses Not on filedocumented in this encounter Care Teams Therapeutic Consultant Relationship Specialty Start Date End Date Ellis Kaur MD [address] [place] [address] PCP - General 12/26/16 documented as of this encounter
--- OUTSIDE RECORDS SUMMARY | 2025-04-26 12:12 | XMS_ITS | Encounter Summary ---
Author Organization [facility] Address [address] [place] [address] Phone Care Team Providers Care Patient Account Analyst Name Role Phone Ellis Kaur MD Primary Care Provider [phone] Encounter Details Date Type Department Care Team (Late st Contact Info) Description 04/25/2025 Results Follow-Up [facility] Gastroenterology [address] [facility] 12[address] [place] [address] [place] [address] Michael Arias MD [address] [place] [address] Surgical pathology Social History Tobacco Use Types Packs/Day Years [...] on file Legal Sex Female 8:48 PM [employer] Gender Identity Female 02/24/2020 3:11 PM CDT Sexual Orientation Straight 02/24/2020 3: 11 PM CDT documented as of this encounter Miscellaneous Notes * Result Encounter Note - Michael Arias MD - 04/25/2025 2:32 PM CDT Inactive ileal inflammation documented in this encounter Plan of Treatment Not on file documented as of this encounter Visit Diagnoses Not on filedocumented in this encounter Care Teams Patient Account Analyst Relationship Specialty Start Date End Date Ellis Kaur MD [address] [facility] [address] [place], [place] [id number] PCP - General 12/26/16 documented as of this encounter
--- OUTSIDE RECORDS SUMMARY | 2025-04-26 12:12 | XMS_ITS | Clinical Summary ---
Author Organization [facility] Address [address] [place] [address] Care Team Providers Care Technical Sales Specialist Name Role Phone Ellis Kaur MD Primary Care Provider [phone] Allergies No known active allergies Medications calcium [...] Department Care Team Description 04/25/2025 Results Follow-Up [facility] [address] [place] [address] [place] [address] Michael Arias MD Surgical pathology 04/22/2025 9:00 AM CDT - 04/22/2025 10:00 AM CDT Surgery [facility] [address] [address] Michael Arias MD COLON BIOPSY 04/22/2025 8:47 AM CDT Anesthesia Event [facility] [address] [address] Musa Ojeda MD 04/22/2025 7:47 AM CDT - 04/22/2025 10:11 AM CDT Hospital Encounter [facility] [address] [place] [address] Michael Arias MD Crohn's disease of small and large intestines with complication (HCC) Discharge Disposition: Discharge to home or self care 03/18/2025 Orders Only [facility] Scanning, Provider 02/22/2025 Telephone [facility] [address] [place] [address] Medical Office Building [address] [place] [phone] Tayler Deleon RN GI pre procedure assessment 02/22/2025 Orders Only [facility] [address] [place] [address] Medical Office Building [address] [place] [phone] Michael Arias MD Crohn's disease of small and large intestines with complication (HCC) (Primary Dx) 02/03/2025 3:20 PM CDT Office Visit [facility] [address] [place] [address] [address] [place] [address] [place] [phone] Michael Arias MD Crohn's disease of small and large intestines with complication (HCC) (Primary Dx); High risk medications (not anticoagulants) long-term use; Long-term use of immunosuppressant medication from Last 3 Months Immunizations Immunization Administration [...] 10/26/2020,09/2014,08/26/2013 Surgical History Surgery Date Site/Laterality Comments OH EXPLORATORY LAPAROTOMY CELIOTOMY W/WO BIOPSY SPX 09/22/1997 - 09/21/1998 small bowel resection, appendectomy CHOLECYSTECTOMY 11/20/2017 - 12/20/2017 REFRACTIVE SURGERY 09/22/2011 - 09/21/2012 Bilateral UPPER GASTROINTESTINAL ENDOSCOPY Medical History Medical History Date Comments Tobacco abuse counseling HTN (hypertension) Migraines History of transfusion 1997 HAAS (nonalcoholic steatohepatitis) Rectal lesion Crohn's disease (HCC) 1997 Hypertension COURTNEY (obstructive sleep apnea) [...] on file Legal Sex Female 8:48 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 Gender Identity Female 02/24/2020 3:11 PM CDT [...] 04/22/2025 8:35 AM CDT Plan of Treatment Health Maintenance Due Date Last Done Comments Breast Cancer Screening-Mammogram 1970 Cervical Cancer Screening 1970 Depression Screening 1970 Hepatitis C Screening 1970 DTaP/Tdap/Td Vaccine (1 - Tdap) 12/03/1983 Regular Well Visit/Exam 18-64 1990 Zoster Vaccine (1 of 2) 2022 Covid-19 Vaccine (5 - 2023-2 5 season) 2024 06/19/2022, 05/30/2021, 12/16/2020, Additional history exists Influenza Vaccine (#1) 2025 , 08/06/2023, 06/19/2022, Additional history exists Pneumococcal vaccine <65 (3 of 3 - PCV20 or PCV21) 10/26/2025 10/26/2020, 01/11/2016, 06/22/2015, Additional history exists Colon Cancer Screening-Colonoscopy 04/22/2035 04/22/2025, 07/02/2024, 03/11/2022, Additional history exists Procedures Procedure Name Priority [...] last revised on 2014. POC Device Number [id number] 4 JEREMI DUVALL Blood 04/22/2025 9:39 AM CDT 04/22/2025 9:39 AM CDT us Michael Arias MD LAB POCT ORDERABLES - DEVIC E Final Result [facility] [id number] [facility]. [place] [address] * Surgical pathology (04/22/2025 9:02 AM CDT) Tissue (Ileum, Biopsy) 04/22/2025 9:02 AM CDT Tissue specimen (specimen) (Colon, Biopsy) 04/22/2025 9:04 AM CDT Tissue specimen (specimen) (Colon, Biopsy) 04/22/2025 9:04 AM CDT Tissue specimen (specimen) (Colon, Biopsy) 04/22/2025 9:04 AM CDT Tissue specimen (specimen) (Polyp(s), colon/colorectal, esophageal, gastric) 04/22/2025 9:14 AM CDT Narrative PATHOLOGY BJW - 04/25/2025 11:05 AM CDT EPIC results best viewed via link to PDF [facility] [place] [address] Note to Patients: This report may contain [...] Gender: F : 1970 (Age: 54) Address: [address] [place] [address] Hospital #: [id number] Taken:04/22/2025 Received:04/22/2025 Reported: 04/25/2025 Patient Type: [facility] EP SAME Client [facility] Service: Gastro Location: Physician(s): MD Ellis Karimi [...] inflammation - No granulomas or dysplasia identified fw04/25/2025 08:38 By this signature, I attest that [...] for this case was performed at [facility], Department of Surgical Pathology, [address] [facility] [place], [place] [id number], [place] [address] CLIA # [id number] The performance characteristics of some immunohistochemical stains, fluorescence in-situ hybridization tests and immunophenotyping by flow cytometry cited in this report (if any) were determined by the Surgical Pathology and Flow Cytometry Departments at [facility] as part of an ongoing software quality tester program and in compliance with federally mandated [...] Pathology and Flow Cytometry Departments of [facility]. It has not been cleared or approved by the U. S. Food and Drug Administration. IMAGES AND SCANNED DOCUMENTS, IF INCLUDED, ONLY VIEWABLE IN PDF VERSION OF REPORT Michael Arias MD LAB PATHOLOGY ORDERABLES [facility] Result PATHOLOGY [facility] [phone] * Colonoscopy (04/22/2025 8:46 AM CDT) Anatomical Region Laterality Modality Other Narrative Procedure Note Michael Arias MD - 04/22/2025 8:46 AM CDT ENDOSCOPY LAB Patient Name: Love Beltran Procedure Date: 04/22/2025 8:46 AM Date of : 1970 Admit Type: Outpatient Age: 54 Gender: Female Attending MD: Michael Arias M.D., Room: [facility] ENDOSCOPY ROOM 03 Note Status: [...] IV propofol under the supervision of a PLAYERS ASSISTANT was determined to be medically necessary for this procedure based on review of the patient's medical history, medications, and prior anesthesiahistory. The benefits, risks and alternatives of theprocedure and sedation were discussed and informed consentwas obtained. All questions were answered. Please referto the signed informed consent document in the medical record. The scope was passed under direct vision.The [id number] was introduced through the anusand advanced to [...] limb of the chad-terminal ileum appeared normal, cm examined. Patchy areaa of mildly erythematous [...] 0 Note Initiated On: 04/22/2025 8:46 AM us Michael Arias MD ENDOSCOPY PROCEDURES Final Result * POCT glucose (04/22/2025 8:42 AM CDT) Glucose, POC 85 70 - 199 mg/dL Comment: Interpretive Data Glucose is assumed to be non-fasting. Fasting Glucose reference ranges are: 0 - 150 years: 70 mg/dL - 99 mg/dL Current interpretive data was last revised on 2014. POC Device Number [id number] [address] [place] [id number] Blood 04/22/2025 8:42 AM CDT 04/22/2025 8:42 AM CDT Michael Arias MD LAB POCT ORDERABLES - DEVIC E Final Result [facility] [id number] [facility]. [place] [address] * POCT hCG, urine (04/22/2025) HCG, ur, POC Negative Negative Lot Number [id number] QC Backgroud Clear Acceptable QC Control Line Acceptable Urine 04/22/2025 Historical Provider POINT OF CARE TEST ORDERA BLES Final Result * SCAN - LABS (03/18/2025) Provider Scanning Final Result from Last 3 Months Insurance GENERIC [employer] ASSIST [facility] CHOICE PLUS [facility] HMO/PPO Address: [address] [address] [place] [address] [facility] CHOICE PLUS [facility] HMO/PPO Address: [address] [place] [address] ANTHEM ACCESS BLUE ACCESS OOS [facility] CHOICE PLUS [facility] HMO/PPO Address: [place] [address] Advance Directives For more information, please contact: [phone] * Full Code (Latest Code Status on [...] 9:29 AM 08/30/2019 3:35 PM Care Teams Technical Sales Specialist Relationship Specialty Start Date End Date Ellis Kaur MD [address] [facility] [address] [place] [address] PCP - General 12/26/16
== END 2025-04-26 12:10 | disposition home or self-care (01) ==
LOC: CHSIMG 12:11
PROVIDERS: PCP Internal Medicine; Visit Provider Obstetrics & Gynecology
DX: Z12.31 Encounter for screening mammogram for malignant neoplasm of breast (principal)
CPT/HCPCS: 77063; 77067